=== PATIENT | male | born 1950 | race Caucasian/White ===

== ENCOUNTER 2016-12-17 20:28 | Inpatient (IN) | payer OTHER ==
[~2016-12-17] VITALS: Ht 170.2 cm; Wt 55.3 kg
[~2016-12-17 20:28] MED LIST: ADVIN50050 INH; ALBUAER9 INH; ASCOCRY2 PO; CHOL100010 PO; DUONEB INH; FEXO1TAB49 PO; LEVO150T9 PO; MEGE40TA13 PO; NXM/40 PO; OMEG10007 PO; OXGN; PARO1TAB29 PO; TADA10TA PO; TEST1SOL TOP; TIOTCAP INH; TRAM-10 PO; VYT1040 PO; [UNRECOGNIZED DRUG - REMARK]
[2016-12-17] MEDS ORDERED: SODIUM CHLORIDE 0.9% 1000ML 250 ML IV STA (21:11)
[2016-12-17] MEDS ORDERED: METHYLPREDNISOLONE 125 MG VIAL IV STA (21:11)
[2016-12-17] MEDS ORDERED: ALBUT/IPRATROP 3MG/0.5MG NEB 3 ML VIAL INH STA (21:11)
[2016-12-17] MEDS ORDERED: PIPERACILLIN/TAZOBACTAM 4.5 GM/100ML D5W IV STA (21:11)
[2016-12-17] MEDS ORDERED: SODIUM CHLORIDE 0.9% 1000ML 1,000 ML IV STA (21:11)
[2016-12-17] MEDS ORDERED: ONDANSETRON INJ 2 MG/ML 2 ML VIAL IV STA (21:11)
--- NOTE | 2016-12-17 21:36 | EMERGENCY ROOM VISIT NOTE ---
History Report prepared by Melo: Sangeetha Griggs Under the Supervision of: Dr. Bryn Cash M.D. First contact with patient: 21:02 Chief Complaint: RESPIRATORY PROBLEMS Stated Complaint: PNEUMONIA, NAUSEA History of Present Illness The patient is a 66 year old male who presents to the Emergency Room with complaints of persistent respiratory problems that started 10-11 days ago. He is on 2 L of nasal cannula oxygen at home. The patient has tried to relieve his symptoms with a nebulizer and exercise breather, but neither has offered him any relief. His most recent nebulizer treatment was this morning. The patient states that he was diagnosed with bronchitis by his PCP 10-11 days ago. He was started on 750 mg of Levaquin for one week along with a prednisone taper. He finished both of those medications last week and went back to his PCP 3 days ago for a one week follow-up. At the follow-up, the patient was experiencing chest pain especially with breathing, so she recommended that he go into the ED for further evaluation. He was evaluated at the [facility] 3 days ago and had an unremarkable EKG and a chest CT was negative for clots, but revealed bilateral pneumonias. The patient was given a dose of IV antibiotics and discharged home without any prescriptions. He states that he is still experiencing chest pain with breathing. He is also experiencing a slight fever around 100 F, a productive cough with pale green sputum, nausea, and vomiting. He states that the vomiting started earlier today and most of the time he is dry heaving. The patient has a history of COPD. The patient adds that he has a Dilaudid pump in place for chronic back pain and when they refilled it 2 weeks ago they added Clonidine to help with the burning that he was experiencing in his legs. However, he states that the Clonidine hasn't been working. Source of History: patient Onset: 10-11 days ago Position: chest Quality: other (respiratory problems) Timing: other (persistent) Associated Symptoms: + chest pain (with breathing), + cough (productive with pale green sputum), + fevers, + nausea, + vomiting Review of Systems See HPI for pertinent positives & negatives. A total of 10 systems reviewed and were otherwise negative. Past Medical & Surgical Medical Problems: (1) Hyperlipidemia (2) Hypertension (3) Respiratory failure, [id number] Family History Heart disease Social History Smoking Status: Former Smoker Marital Status: Housing Status: lives with family Current/Historical Medications Scheduled Ascorbic Acid (Ascorbic Acid), 1,000 MG PO DAILY Cholecalciferol (Vitamin D 1000 Unit), 1,000 INTER.UNIT PO DAILY Difluprednate (Durezol), 1 DROP OPL BID Esomeprazole Magnesium (Nexium), 40 MG PO BID Ezetimibe/Simvastatin (Vytorin 10-40 mg), 1 TAB PO HS Fish Oil ([place]-3), 1 CAP PO DAILY Fluticasone Prop/Salmeterol (Advair Diskus 500-50 Mcg/Dose), 2 PUFFS INH BID Levothyroxine Sodium (Levothyroxine Sodium), 150 MCG PO DAILY Oxygen (Oxygen), 2 LITERS NA CONTINOUS Paroxetine (Paxil), 140 MG PO DAILY Sennosides-Docusate Sodium (Stool Softener), 50 MG PO BID Tadalafil (Cialis), 2.5 MG PO UD Testosterone (Axiron), 1 APPLN TOP HS Tiotropium [place] (Spiriva Handihaler), 1 CAP INH QAM Scheduled PRN Albuterol Sulf (Albuterol Sulfate), 3 ML NEB QID PRN for SOB/Wheezing Fexofenadine Hcl (Shanique Allergy), 180 MG PO DAILY PRN for Allergy Symptoms Hydroxyzine Pamoate (Vistaril), 25 MG PO BID PRN for Itching Promethazine Hcl (Phenergan), 25 MG PO Q6H PRN for Nausea Tramadol (Ultram), 50 MG PO Q6H PRN for Pain Allergies Coded Allergies: Carbamazepine (Unverified Allergy, Severe, GI SYMPTOMS, 12/17/16) Chemically induce hepatitis Ibuprofen (Unverified Allergy, Severe, ANAPHYLAXIS, 12/17/16) Gabapentin (Unverified Adverse Reaction, Intermediate, GI SYMPTOMS, ) diarrhea NSAIDs (Unverified Adverse Reaction, Intermediate, GI SYMPTOMS, 12/17/16) RIP UP STOMACH Physical Exam Vital Signs Date Time Temp Pulse Resp B/P Pulse Ox O2 Delivery O2 Flow Rate FiO2 12/17/16 22:46 98 22 91/61 98 Nasal Cannula 2.0 12/17/16 21:53 94 Nasal Cannula 2.0 12/17/16 21:29 Nasal Cannula 2.0 12/17/16 21:04 96 Nasal Cannula 2.0 12/17/16 20:58 83 12/17/16 20:40 36.9 105 18 86/60 92 Nasal Cannula 2.0 Physical Exam GENERAL: Patient is in no acute distress. HEENT: No acute trauma, normocephalic atraumatic, mucous membranes moist, no nasal congestion, no scleral icterus. NECK: No stridor, no adenopathy, no meningismus, trachea is midline. LUNGS: Equal breath sounds but markedly diminished, no wheezing or rhonchi. CHEST: Tender across lower anterior chest wall. HEART: Without murmurs gallops or rubs, regular rate and rhythm. ABDOMEN: Soft, nontender, bowel sounds positive, no hernias, no peritonitis. EXTREMITIES: No cyanosis or edema, full range of motion of all the joints without pain or difficulty, no signs for acute trauma. NEUROLOGIC: Oriented x 3, no acute motor or sensory deficits, no focal weakness. SKIN: No rash, no jaundice, no diaphoresis. Medical Decision & Procedures ER Provider Diagnostic Interpretation: X-ray results as stated below per interpretation by me and the radiologist: CHEST ONE VIEW PORTABLE FINDINGS: Baseline emphysematous changes noted. Increased pulmonary vasculature as well as interstitial Bruna B line are noted in the lung bases. A component of cardiac decompensation may be present. Postoperative changes to the cervical thoracic and lumbar spine are noted. There are chronic fibrotic changes over the right pulmonary apex. Superimposed parenchymal infiltrate may be present. IMPRESSION: Emphysematous change with developing components of congestive failure versus right apical infiltrative change. Electronically signed by: Parker Zamarripa M.D. 12/17/2016 9:37 PM Dictated Date/Time: 12/17/2016 9:35 PM Laboratory Results 12/17/16 21:30 Red Blood Count 4.47, Mean Corpuscular Volume 87.2, Mean Corpuscular Hemoglobin 28.6, Mean Corpuscular Hemoglobin Concent 32.8, Mean Platelet Volume 8.9, Neutrophils (%) (Auto) 80.9, Lymphocytes (%) (Auto) 7.7, Monocytes (%) (Auto) 10.7, Eosinophils (%) (Auto) 0.4, Basophils (%) (Auto) 0.1, Neutrophils # (Auto ) 6.76, Lymphocytes # (Auto) 0.64, Monocytes # (Auto) 0.89, Eosinophils # (Auto ) 0.03, Basophils # (Auto) 0.01 12/17/16 21:30 Test 12/17/16 21:30 12/17/16 23:12 White Blood Count 8.35 K/uL (4.8-10.8) Red Blood Count 4.47 M/uL (4.7-6.1) Hemoglobin 12.8 g/dL (14.0-18.0) Hematocrit 39.0 % (42-52) Mean Corpuscular Volume 87.2 fL (80-100) Mean Corpuscular Hemoglobin 28.6 pg (25-34) Mean Corpuscular Hemoglobin Concent 32.8 g/dl (32-36) Platelet Count 258 K/uL (130-400) Mean Platelet Volume 8.9 fL (7.4-10.4) Neutrophils (%) (Auto) 80.9 % Lymphocytes (%) (Auto) 7.7 % Monocytes (%) (Auto) 10.7 % Eosinophils (%) (Auto) 0.4 % Basophils (%) (Auto) 0.1 % Neutrophils # (Auto) 6.76 K/uL (1.4-6.5) Lymphocytes # (Auto) 0.64 K/uL (1.2-3.4) Monocytes # (Auto) 0.89 K/uL (0.11-0.59) Eosinophils # (Auto) 0.03 K/uL (0-0.5) Basophils # (Auto) 0.01 K/uL (0-0.2) RDW Standard Deviation 43.2 fL (36.4-46.3) RDW Coefficient of Variation 13.5 % (11.5-14.5) Immature Granulocyte % (Auto) 0.2 % Immature Granulocyte # (Auto) 0.02 K/uL (0.00-0.02) Prothrombin Time 10.3 SECONDS (9.0-12.0) Prothromb Time International Ratio 1.0 (0.9-1.1) Activated Partial Thromboplast Time 32.7 SECONDS (21.0-31.0) Partial Thromboplastin Ratio 1.3 Anion Gap 5.0 mmol/L (3-11) Est Creatinine Clear Calc Drug Dose 55.1 ml/min Estimated GFR () 90.3 Estimated GFR (Non- 77.9 BUN/Creatinine Ratio 11.8 (10-20) Calcium Level 8.8 mg/dl (8.5-10.1) Magnesium Level 2.0 mg/dl (1.8-2.4) Total Bilirubin 0.6 mg/dl (0.2-1) Aspartate Amino Transf (AST/SGOT) 13 U/L (15-37) Alanine Aminotransferase (ALT/SGPT) 17 U/L (12-78) Alkaline Phosphatase 81 U/L (45-117) Troponin I < 0.015 ng/ml (0-0.045) Pro-B-Type Natriuretic Peptide 168 pg/ml (0-900) Total Protein 7.3 gm/dl (6.4-8.2) Albumin 2.6 gm/dl (3.4-5.0) Globulin 4.7 gm/dl (2.5-4.0) Albumin/Globulin Ratio 0.6 (0.9-2) Thyroid Stimulating Hormone (TSH) 0.072 uIu/ml (0.300-4.500) Laboratory results reviewed by me. Medications Administered Medications (Trade) Dose Ordered Sig/Jo Route Start Time Stop Time Status Last Admin Dose Admin Sodium Chloride (Nss 1000ml) 250 ml @ 999 mls/hr Q16M STAT IV 12/17/16 21:11 12/17/16 21:26 DC 12/17/16 21:11 999 MLS/HR Ondansetron HCl (Zofran Inj) 4 mg NOW STAT IV 12/17/16 21:11 12/17/16 21:14 DC 12/17/16 21:48 4 MG Methylprednisolone Sodium Succinate (Solu-Medrol IV) 125 mg NOW STAT IV 12/17/16 21:11 12/17/16 21:14 DC 12/17/16 21:48 125 MG Albuterol/ Ipratropium (Duoneb) 3 ml NOW STAT INH 12/17/16 21:11 12/17/16 21:14 DC 12/17/16 21:48 3 ML Piperacillin Sod/ Tazobactam Sod 4.5 gm 4.5 gm NOW STAT IV 12/17/16 21:11 12/17/16 21:14 DC 12/17/16 21:58 4.5 GM Sodium Chloride (Nss 1000ml) 1,000 ml @ 125 mls/hr Q8H STAT IV 12/17/16 21:11 12/18/16 05:10 12/17/16 22:13 125 MLS/HR ECG Indication: chest pain, SOB/dyspnea Rate (beats per minute): 81 Rhythm: normal sinus Findings: no acute ischemic change, no ectopy ED Course 2102: The patient was evaluated in room B2. A complete history and physical exam was performed. 2110: Ordered Sodium Chloride 1000 ml @ 125 mls/hr IV, Zosyn 4.5 gm IV, DuoNeb 3 ml INH, Solu-Medrol 125 mg IV, Zofran Inj 4 mg IV, Sodium Chloride 250 ml @ 999 mls/hr IV 2223: Discussed the patient's case with Dr. Travis Oates. The patient will be evaluated for further management. 2242: Upon reexamination the patient is resting comfortably. I discussed results and treatment plan with the patient. He verbalizes agreement and understanding. The patient will be evaluated for further management. Medical Decision Differential diagnoses considered include pneumonia or bronchitis, cardiac ischemia, exacerbation of COPD, viral illness, anemia, electrolyte imbalance, dehydration, failed outpatient treatment. There is no leukocytosis or concerning anemia. No significant electrolyte abnormality, kidney failure or hepatitis. Chest x-ray shows a right sided pneumonia, no pneumothorax. BNP is not elevated making heart failure less likely. EKG shows a normal sinus rhythm, no acute ischemic change. Cardiac enzyme testing 1 is not consistent with acute cardiac injury. Blood cultures are pending. There is no coagulopathy. The patient was given IV saline, IV Zofran, IV Zosyn. He received a DuoNeb and IV Solu-Medrol. The patient presents with pneumonia, he has an exacerbation of COPD. He has failed outpatient treatment. Admission/observation is warranted. I spoke to the patient and to case management. The on-call hospitalist was consulted. Of note, the patient's lower blood pressure may be from the addition of the clonidine to his intrathecal pump. Consults Time Called: 2217 Consulting Physician: Dr. Travis Oates Returned Call: [phone] Discussed the patient's case with Dr. Travis Oates. The patient will be evaluated for further management. Impression Primary Impression: Pneumonia Additional Impressions: Hypotension COPD exacerbation Failure of outpatient treatment Scribe Attestation The scribe's documentation has been prepared under my direction and personally reviewed by me in its entirety. I confirm that the note above accurately reflects all work, treatment, procedures, and medical decision making performed by me. Departure Information Dispostion Being Evaluated By Hospitalist Referrals No Doctor, Assigned (PCP) Patient Instructions My [facility] Problem Qualifiers Primary Impression: Pneumonia Pneumonia type: due to unspecified organism Additional Impressions: Hypotension Hypotension type: unspecified hypotension type Qualified Codes: I95.9 - Hypotension, unspecified
[2016-12-17 21:45] LABS: BASO % 0.1 %; BASO ABS # 0.01 K/uL (0-0.2); COMPLETE YES; EOS % 0.4 %; IG% 0.2 %; LYMPH % 7.7 %; LYMPH ABS # 0.64 K/uL (1.2-3.4); MEAN CELL VOLUME 87.2 fL (80-100); MEAN CORPUSCULAR HEMOGLOBIN 28.6 pg (25-34); MEAN CORPUSCULAR HGB CONC 32.8 g/dl (32-36); MEAN PLATELET VOLUME 8.9 fL (7.4-10.4); MONO % 10.7 %; NEUT % 80.9 %; PLATELET COUNT 258 K/uL (130-400); RED BLOOD COUNT 4.47 M/uL (4.7-6.1); WHITE BLOOD COUNT 8.35 K/uL (4.8-10.8)
[2016-12-17 21:56] LABS: PARTIAL THROMBOPLASTIN RATIO 1.3; PROTHROMBIN TIME (PATIENT) 10.3 SECONDS (9.0-12.0)
[2016-12-17 22:01] LABS: ALT/SGPT 17 U/L (12-78); BLOOD UREA NITROGEN 12 mg/dl (7-18); BUN/CREATININE RATIO 11.8 (10-20); CARBON DIOXIDE 33 mmol/L (21-32); CHLORIDE 100 mmol/L (98-107); CREATININE 0.99 mg/dl (0.60-1.40); GLUCOSE 123 mg/dl (70-99); SODIUM 138 mmol/L (136-145)
[2016-12-17 22:06] LABS: ALB/GLOB RATIO 0.6 (0.9-2); ALKALINE PHOSPHATASE 81 U/L (45-117); AST/SGOT 13 U/L (15-37)
[2016-12-17 22:13] LABS: CALCIUM 8.8 mg/dl (8.5-10.1)
[2016-12-17] MEDS ORDERED: DIFL0.0519 OPL (22:48)
[2016-12-17] MEDS ORDERED: SPRIN/30 INH (22:48)
[2016-12-17] MEDS ORDERED: ALBINS NEB (22:48)
[2016-12-17] MEDS ORDERED: HYDR1CAP85 PO (22:48)
[2016-12-17] MEDS ORDERED: TADA2.5T PO (22:48)
[2016-12-17] MEDS ORDERED: PROM25TA9 PO (22:48)
[2016-12-17] MEDS ORDERED: CHOL100027 PO (22:51)
[2016-12-17] MEDS ORDERED: SENNTAB23 PO (22:52)
[2016-12-17] MEDS ORDERED: ASCO100061 PO (22:53)
[2016-12-17 23:08] LABS: THYROID STIMULATING HORMONE 0.072 uIu/ml (0.300-4.500)
[2016-12-17] MEDS ORDERED: SODIUM CHLORIDE 0.9% 1000ML 1,000 ML IV SCH (23:24)
[2016-12-17] MEDS ORDERED: LEVALBUTEROL/IPRATROPIUM NEB INH PRN (23:30)
[2016-12-17] MEDS ORDERED: PROMETHAZINE HCL INJ 12.5 MG in SODIUM CHLORIDE 0.9% 50ML 50 ML IV PRN (23:30)
[2016-12-17] MEDS ORDERED: ONDANSETRON INJ 2 MG/ML 2 ML VIAL IV PRN (23:30)
[2016-12-17] MEDS ORDERED: FEXOFENADINE HCL 180 MG TAB PO PRN (23:30)
[2016-12-17] MEDS ORDERED: hydrOXYzine HCL 25 MG TAB PO PRN (23:30)
[2016-12-17] MEDS ORDERED: SODIUM CHLORIDE 0.9% 1000ML 1,000 ML IV ONE (23:45)
[2016-12-17 23:56] LABS: ALLEN TEST POS (POS); ARTERIAL BLD GAS O2 SATURATION 95.9 % (90-95); ARTERIAL BLOOD GAS BASE EXCESS 3.2 mEq/L (-9-1.8); ARTERIAL BLOOD GAS HCO3 27 mmol/L (19-24); ARTERIAL BLOOD GAS PO2 81 mm/Hg (80-95); ARTERIAL BLOOD GAS pH 7.48 (7.35-7.45); O2 ADMINISTRATION 2L
[2016-12-18] VITALS (14 sets, daily range): BP systolic 92–118; BP diastolic 54–65; PULSE 61–92; TEMP 36.4–36.8; O2SAT 93–98; Ht 170.2 cm; Wt 55.3 kg
[2016-12-18] MEDS ORDERED: LEVALBUTEROL 1.25MG/0.5ML NEB INH PRN (01:00)
[2016-12-18] MEDS ORDERED: IPRATROPIUM BROMIDE NEB SOLN 0.02% 2.5 ML VIAL INH PRN (01:00)
[2016-12-18] MEDS: IPRATROPIUM BROMIDE NEB SOLN 0.02% 2.5 ML VIAL INH SCH ×4 (01:45→18:48)
[2016-12-18] MEDS: LEVALBUTEROL 1.25MG/0.5ML NEB INH SCH ×4 (01:45→18:48)
[2016-12-18] MEDS ORDERED: LEVALBUTEROL/IPRATROPIUM NEB INH SCH (03:00)
[2016-12-18] MEDS: PIPERACILL/TAZOBAC IV 3.375 GM in DEXTROSE 5% 100ML IV SCH ×3 (03:28→20:17)
[2016-12-18] MEDS: LEVOTHYROXINE 125 MCG TAB PO SCH (06:13)
[2016-12-18] MEDS ORDERED: LEVOTHYROXINE 150 MCG TAB PO SCH ×2 (06:30)
--- NOTE | 2016-12-18 06:55 | HISTORY & PHYSICAL EXAMINATION ---
PRIMARY CARE DOCTOR: Dr. Ríos CHIEF COMPLAINT: Chest pain and shortness of breath. HISTORY OF PRESENT ILLNESS: Hx obtained from px and records. Medical history is significant for chronic respiratory failure secondary to COPD on home O2, past tobacco abuse, chronic back pain sp surgery sp intrathecal pump, chronic anemia (baseline hemoglobin of 12), mood disorder, Barretts esophagus/ GERD sp surgery, colonic polyps. About two weeks ago, the patient noted cough symptoms productive of yellow sputum. Denies juancarlos aspiration although he feels would get food stuck in his throat from time to time. Outpatient EGD scheduled for next month. He was seen at PCP's office. Prescribed Levaquin and prednisone for COPD exacerbation. Initial improvement of symptoms. About three days ago, the patient had pleuritic chest pain, sob sx and recurrent cough symptoms productive of green sputum. He was seen at [facility] in [place], [place]. As per patient, CT of the chest showed pneumonia, no pulmonary embolism. Patient was given IV antibiotics and sent home. Worsening symptoms at home. Stools are a little loose. At the Emergency Room the patient received Solu-Medrol, breathing treatments and Zosyn for COPD exacerbation/pneumonia. MEDICAL HISTORY: As above. Patient's administrative technician is Dr. Willis from [facility]. Patient goes to [facility] Pain Management. Addition of clonidine to intrathecal Dilaudid pump during last visit this month. SURGERIES: He has had back surgery, pain pump placement, Edwin fundoplication, cataract surgery. 2D echo from July 2015 showed EF of 72%, mildly abnormal LV diastolic dysfunction. HOME MEDICATIONS: Include; Proventil, vitamin B, DuoNeb, Nexium, [place]ique, [place]-3, Advair Diskus, Megace, oxygen, Paxil, testosterone, Cialis, Spiriva, Ultram, dilaudid/clonidine in pain pump ALLERGIES: TO CARBAMAZEPINE, IBUPROFEN AND GABAPENTIN. FAMILY HISTORY: Hypertension. PERSONAL AND SOCIAL HISTORY: Past tobacco. No chronic intake of alcoholic beverages. Retired from the . REVIEW OF SYSTEMS: As per HPI. All other ROS negative. PHYSICAL EXAMINATION: VITAL SIGNS: Blood pressure was noted to be 86/60, pulse rate 105 later 90, RR 22, T 37 O2 sats 92 on two liters. GENERAL: Noted to be chronically ill, hyposthenic, minimal respiratory distress. SKIN: Pallor. HEENT: Pale palpebral conjunctivae. Dry mucosa. NECK: No JVD. Supple. CHEST: Expiratory wheezes. HEART: Regular rate and rhythm. ABDOMEN: No distention, nontender. EXTREMITIES: No edema. no tenderness NEUROLOGIC: No gross focality. LABORATORIES: Hemoglobin was noted to be 12.8, white cell count 8.3 and platelets 268. Sodium was noted to be 138, potassium 3.8 chloride 100, CO2 30, BUN 20, creatinine 0.9 and glucose 123. TSH was 0.07, FT4 3.12 BNP was normal. ABG pH 7.48, pCO2 37, pO2 81, 95% on two liters. Chest x-ray showed emphysema, infiltrate on the right upper lobe. EKG as per my interpretation; rate 80, NSR, left axis deviation, LAFB, negative ischemia. ASSESSMENT: 1. Acute on chronic respiratory failure secondary to chronic obstructive pulmonary disease exacerbation secondary to pneumonia, possible aspiration recent emesis episode possible esophageal dysfunction. Recent bronchitis status post Levaquin/prednisone course Patient is not septic. past tobacco abuse. 2. pleuritic cp from pneumonia no PE from recent ER visit ([facility]) chronic pain on intrathecal pain pump. 3. hypotension, possibly from intrathecal clonidine 4. Hypothyroidism, abnormal thyroid function tests. 5. Chronic anemia, hemoglobin at baseline. 6. GERD sp Edwin fundoplication. 7. Malnutrition (low BMI) 8. loose stools ro cdif PLAN: PCU supplemental O2 Zosyn, nebs RTC, prn; prednisone Pulmonary consult. COPD exacerbation (Patient known to Dr. Willis.) Swallow evaluation. Aspiration precautions for now. TTE RE cp Retrieve CT chest results from [facility] Pain management consult. RE Follow up evaluation of intrathecal pain pump ( ?intrathecal clonidine causing hypotension) adjust home levothyroxine dose, recheck TSH outpx next month stool cdif Nutrition consult. RE low BMI DVT prophylaxis, Lovenox subQ. Full code. MTDD
[2016-12-18] MEDS: CHOLECALCIFEROL 1000 INTER.UNIT TAB PO SCH (07:43)
[2016-12-18] MEDS: PANTOprazole SOD 40 MG TAB PO SCH ×2 (07:43→20:30)
[2016-12-18] MEDS: ENOXAPARIN 30 MG/0.3 ML SYR SC SCH (07:44)
[2016-12-18 07:45] LABS: COMPLETE YES; HEMATOCRIT 37.1 % (42-52); IG% 0.6 %; LYMPH % 14.7 %; LYMPH ABS # 0.53 K/uL (1.2-3.4); MEAN CELL VOLUME 87.9 fL (80-100); MEAN CORPUSCULAR HEMOGLOBIN 27.7 pg (25-34); MEAN CORPUSCULAR HGB CONC 31.5 g/dl (32-36); MEAN PLATELET VOLUME 8.6 fL (7.4-10.4); MONO % 0.8 %; NEUT % 83.9 %; PLATELET COUNT 230 K/uL (130-400); RED BLOOD COUNT 4.22 M/uL (4.7-6.1)
--- NOTE | 2016-12-18 08:54 | Pain Management Consultation ---
Pain Management Consultation Date of Consultation December 18, 2016. Reason for Consultation intrathecal pump mgt History Mr. Uriostegui is a 66-year-old white male who is known to the pain service with a history of chronic intractable low back and lower extremity radicular pain secondary to lumbar post-laminectomy syndrome. The patient also has chronic complaints of peripheral neuropathic pain, described as burning with paresthetica and dysesthetic pain in the feet bilaterally in nondermatomal patterns. The patient indicates that his pain is currently a 3/ 10 ranging between a 2-6/10. He recently had an addition of clonidine at 13 g per day added to his intrathecal pump medications and attempt to improve his peripheral neuropathic pain complaints. He presented to the [facility] emergency room with 3 weeks of shortness of breath and productive cough and mucous and recent pneumonia status post outpatient treatment. He also presented with decreased oxygen saturation and mild hypotension. The patient reports that the addition of clonidine at 13 g per day in his pump was moderately efficacious and diminishing his peripheral neuropathic pain however given his current low-grade hypotension requests removal of clonidine from his pump at this time. He denies any other complaints associated with his intrathecal pump at this time. Past Medical/Surgical History (1) Respiratory failure, [id number] (2) Hypotension (3) Pneumonia (4) COPD exacerbation (5) Failure of outpatient treatment (6) Hypertension (7) Hyperlipidemia Family History Heart disease Family Hx Review: history personally reviewed by me Social / Work History Smokeless Tobacco Use: No Drug Use: none Marital Status: Housing Status: lives with family Allergies Coded Allergies: Carbamazepine (Unverified Allergy, Severe, GI SYMPTOMS, 12/17/16) Chemically induce hepatitis Ibuprofen (Unverified Allergy, Severe, ANAPHYLAXIS, 12/17/16) Gabapentin (Unverified Adverse Reaction, Intermediate, GI SYMPTOMS, ) diarrhea NSAIDs (Unverified Adverse Reaction, Intermediate, GI SYMPTOMS, 12/17/16) RIP UP STOMACH Medications Current Inpatient Medications Medications (Trade) Dose Ordered Sig/Jo Route Start Time Stop Time Status Last Admin Dose Admin Enoxaparin Sodium (Lovenox Inj) 30 mg Q24H SC 12/18/16 09:00 01/17/17 08:59 12/18/16 07:44 30 MG Ondansetron HCl 4 mg 4 mg Q6H PRN IV 12/17/16 23:30 01/16/17 23:29 Promethazine HCl/ Sodium Chloride (Phenergan Inj/ Nss 50ml) 50.5 ml @ 204 mls/hr Q6H PRN IV 12/17/16 23:30 01/16/17 23:29 Piperacillin Sod/ Tazobactam Sod (Consult) 1 ea UD PRN N/A 12/18/16 09:00 01/17/17 08:59 Prednisone (PredniSONE TAB) 40 mg DAILY PO 12/18/16 09:00 12/23/16 08:59 12/18/16 07:43 40 MG Cholecalciferol (Vitamin D Tab) 1,000 inter.unit DAILY PO 12/18/16 09:00 01/17/17 08:59 12/18/16 07:43 1,000 INTER.UNIT Ezetimibe/ Simvastatin (Vytorin 10/40 Tab) 1 tab HS PO 12/18/16 21:00 01/17/17 20:59 Fexofenadine HCl (Shanique Tab) 180 mg DAILY PRN PO 12/17/16 23:30 01/16/17 23:29 Paroxetine HCl (pAXil TAB) 140 mg DAILY PO 12/18/16 09:00 01/17/17 08:59 UNV Tramadol HCl (Ultram Tab) 50 mg Q6H PRN PO 12/17/16 23:30 01/16/17 23:29 Miscellaneous Information (Order Awaiting Action) 1 ea QS N/A 12/18/16 08:00 01/17/17 07:59 Pantoprazole Sodium (Protonix Tab) 40 mg BID PO 12/18/16 09:00 01/17/17 08:59 12/18/16 07:43 40 MG Hydroxyzine HCl 25 mg 25 mg BID PRN PO 12/17/16 23:30 01/16/17 23:29 Sodium Chloride (Nss 1000ml) 1,000 ml @ 80 mls/hr [id number] ONCE IV 12/17/16 23:45 12/18/16 12:14 12/18/16 00:09 80 MLS/HR Ipratropium [place] (Atrovent 0.02% 0.5MG/2.5ML Neb) 0.5 mg Q6R INH 12/18/16 03:00 01/17/17 02:59 12/18/16 07:12 0.5 MG Levalbuterol (Xopenex 1.25MG/ 0.5ML Neb) 1.25 mg Q6R INH 12/18/16 03:00 01/17/17 02:59 12/18/16 07:12 1.25 MG Ipratropium [place] (Atrovent 0.02% 0.5MG/2.5ML Neb) 0.5 mg Q4H PRN INH 12/18/16 01:00 01/17/17 00:59 Levalbuterol (Xopenex 1.25MG/ 0.5ML Neb) 1.25 mg Q4H PRN INH 12/18/16 01:00 01/17/17 00:59 Levothyroxine Sodium 125 mcg 125 mcg DAILYBB PO 12/18/16 06:30 01/17/17 06:29 12/18/16 06:13 125 MCG Piperacillin Sod/ Tazobactam Sod/ Dextrose (Zosyn Iv/D5 100ml) 115 ml @ 28.75 mls/ hr Q8H IV 12/18/16 04:00 12/25/16 03:59 12/18/16 03:28 28.75 MLS/HR Review of Systems +cough/productive mucus/SOB +neuropathy over BL LE No CP/N/V/D/C no WHITE Physical Exam Height & Weight: Height 5 feet, 7.00 inches. Weight 54.500 (Kilograms) 120 (Pounds) Last Vital Signs Documentation Date Time Temp Pulse Resp B/P Pulse Ox O2 Delivery O2 Flow Rate FiO2 12/18/16 07:22 36.4 62 18 101/63 95 Room Air 2.0 Exam: AAOx3 in NAD sitting in bed ACOSTA equally throughout gait not observed tender over BL feet to ankles pump and catheter sites unremarkable CN grossly intact Laboratory Laboratory Results (Last CBC): 12/18/16 07:25 Red Blood Count 4.22 L, Mean Corpuscular Volume 87.9, Mean Corpuscular Hemoglobin 27.7, Mean Corpuscular Hemoglobin Concent 31.5 L, Mean Platelet Volume 8.6, Neutrophils (%) (Auto) 83.9, Lymphocytes (%) (Auto) 14.7, Monocytes (%) (Auto) 0.8, Eosinophils (%) (Auto) 0.0, Basophils (%) (Auto) 0.0, Neutrophils # (Auto) 3.02, Lymphocytes # (Auto) 0.53 L, Monocytes # (Auto) 0.03 L, Eosinophils # (Auto) 0.00, Basophils # (Auto) 0.00 Opioid Risk Assessment Risk assessment performed, no issues identified Assessment 1. Chronic intractable low back pain secondary to lumbar post-laminectomy syndrome requiring implantation of intrathecal pump and catheter delivery system. 2. Peripheral neuropathic pain in bilateral feet. 3. Depressive disorder. 4. Pneumonia on on IV antibiotics. 5. Low-grade hypotension. Recommendations 1. Even though the patient had moderate efficacy from the additional of intrathecal clonidine to his intrathecal pump, we'll plan for removal at this time. Medications will be ordered today with arrival within the next day or two. 2. No other changes to his pain medications will be made at this time. 3. A report of his intrathecal pump was placed on the chart. 4. We'll plan for a refill of his intrathecal pump once medications are made available. 5. Please call with any questions we'll stop back to change his intrathecal pump once medications are available thank you. Punctil Voice Recognition This chart was completed in part utilizing [employer] Voice Recognition Software. Random word insertions, pronoun errors, and incomplete sentences are an occasional consequence of this system due to software limitations and ambient noise. Any questions or concerns about the content, text or information contained within the body of this dictation should be directly addressed to the provider for clarification.
[2016-12-18] MEDS ORDERED: PIPERACILL/TAZOBAC CONSULT ACTIVE PRN (09:00)
[2016-12-18] MEDS: PAROXETINE 20 MG TAB PO SCH (09:10)
[2016-12-18] MEDS ORDERED: DOCUSATE SODIUM/SENNA 50/8.6MG TAB PO PRN (10:00)
--- NOTE | 2016-12-18 14:45 | ECHOCARDIOGRAM REPORT ---
*NOTICE TO RECEIVING LIBERTARIAN AGENCY This information is strictly Confidential and protected under [place] law. [place] law prohibits you from making any further disclosure of this information unless further disclosure is expressly permitted by the written consent of the person to whom it pertains or is authorized by law. A general authorization for the release of medical or other information is not sufficient for this purpose. Hospital accepts no responsibility if the information is made available to any other person, INCLUDING THE PATIENT. Interpretation Summary * Name: DARRELL RASHEED Study Date: 12/18/2016 01:47 PM BP: 98/60 mmHg * Patient Location: [facility] HR: 74 * : 1950 (M/d/yyyy) Gender: Male Height: 67 in * Age: 66 yrs Ethnicity: CA Weight: 120 lb * Ordering Physician: Gavino Robles * Performed By: Sylvia Gonzalez * * Reason For Study: CHEST PAIN * BSA: 1.6 m2 * -- Conclusions -- * Normal LV chamber size and wall thickness. * Hyperdynamic LV systolic function, EF >70%. * No segmental left ventricular wall motion abnormalities are noted. * Grade II diastolic dysfunction. * No significant valvular pathology. Procedure Details * A complete two-dimensional transthoracic echocardiogram was performed (2D, M-mode, Doppler and color flow Doppler). Left Ventricle * The left ventricle is normal in size. * There is normal left ventricular wall thickness. * Ejection Fraction = >70 %. * The left ventricle is hyperdynamic. * No segmental left ventricular wall motion abnormalities are noted. * The left ventricular wall motion is normal. Right Ventricle * The right ventricular cavity size is normal (basal dimension <4.2 cm in right ventricular apical 4-chamber view). * The right ventricular systolic function is normal as assessed by tricuspid annular plane systolic excursion (TAPSE) (normal >1.5 cm). Atria * The left atrial size is normal. * Right atrial size is normal. * No ASD detected; PFO is not assessed. Mitral Valve * The mitral valve is normal in structure and function. Tricuspid Valve * The tricuspid valve is normal in structure and function. Aortic Valve * The aortic valve is normal in structure and function. Pulmonic Valve * The pulmonary valve is not well seen, but the Doppler examination is normal without significant regurgitation or stenosis. Great Vessels * The aortic root is normal size. Pericardium/Pleural * There is no pericardial effusion. Left Ventricular Diastolic Function * Diastolic dysfunction, Grade II (pseudonormalization pattern). MMode 2D Measurements and Calculations IVSd 0.99 cm IVSs 1.5 cm LVIDd 4.1 cm LVIDs 2.5 cm LVPWd 0.70 cm LVPWs 1.5 cm IVS/LVPW 1.4 FS 39.4 % EDV(Teich) 73.9 ml ESV(Teich) 21.9 ml EF(Teich) 70.4 % EDV(cubed) 68.6 ml ESV(cubed) 15.2 ml EF(cubed) 77.8 % % IVS thick 50.2 % % LVPW thick 116.5 % LV mass(C)d 104.4 grams LV mass(C)dI 64.2 grams/m\S\2 LV mass(C)s 125.0 grams LV mass(C)sI 76.8 grams/m\S\2 CO(Teich) 3.3 l/min CI(Teich) 2.0 l/min/m\S\2 SV(Teich) 52.1 ml SI(Teich) 32.0 ml/m\S\2 CO(cubed) 3.4 l/min CI(cubed) 2.1 l/min/m\S\2 SV(cubed) 53.3 ml SI(cubed) 32.8 ml/m\S\2 ACS 1.8 cm LA dimension 3.6 cm asc Aorta Diam 3.3 cm LVOT diam 2.1 cm LVOT area 3.3 cm\S\2 LVAd ap4 24.9 cm\S\2 LVLd ap4 7.6 cm EDV(MOD-sp4) 67.0 ml LVAs ap4 11.7 cm\S\2 LVLs ap4 6.3 cm ESV(MOD-sp4) 18.0 ml EF(MOD-sp4) 73.1 % LVAd ap2 24.2 cm\S\2 LVLd ap2 7.5 cm EDV(MOD-sp2) 66.0 ml LVAs ap2 11.4 cm\S\2 LVLs ap2 6.0 cm ESV(MOD-sp2) 19.0 ml EF(MOD-sp2) 71.2 % CO(MOD-sp4) 3.1 l/min CI(MOD-sp4) 1.9 l/min/m\S\2 SV(MOD-sp4) 49.0 ml SI(MOD-sp4) 30.1 ml/m\S\2 CO(MOD-sp2) 3.0 l/min CI(MOD-sp2) 1.8 l/min/m\S\2 SV(MOD-sp2) 47.0 ml SI(MOD-sp2) 28.9 ml/m\S\2 Doppler Measurements and Calculations MV E max valerie 111.1 cm/sec MV A max valerie 72.9 cm/sec MV E/A 1.5 MV dec time 0.18 sec Ao V2 max 109.5 cm/sec Ao max PG 4.8 mmHg Ao max PG (full) 1.9 mmHg PATT(V,A) 2.6 cm\S\2 PATT(V,D) 2.6 cm\S\2 LV V1 max PG 2.9 mmHg LV V1 max 85.6 cm/sec PA V2 max 60.7 cm/sec PA max PG 1.5 mmHg PI end-d valerie 116.7 cm/sec
--- NOTE | 2016-12-18 15:15 | Progress Note ---
Medicine Progress Note Date & Time of Visit: December 18, 2016 at 14:48. Subjective Pt was seen and examined Lying in bed with no distress Pt said that he feels a little better compared to yesterday he said that his cough and his breathing slightly improved Chest tenderness with deep breathing and coughing Denies any palpitation, fever and dizziness Objective Last 8 Hrs Date Time Temp Pulse Resp B/P Pulse Ox O2 Delivery O2 Flow Rate FiO2 12/18/16 13:00 93 12/18/16 12:00 Nasal Cannula 2.0 12/18/16 11:32 36.6 74 18 98/60 93 Nasal Cannula 2.0 12/18/16 08:00 Nasal Cannula 2.0 12/18/16 07:22 36.4 62 18 101/63 95 Room Air 2.0 12/18/16 07:12 61 16 97 Nasal Cannula 2.0 Physical Exam: General- No acute distress Head- atraumatic Eyes- PERRL, EOMI ENT- oropharynx clear Neck- supple, no JVD Lungs- Coarse breath sound Heart- regular rhythm Abdomen- normal bowel sounds, soft, nontender, Pump located in LLQ Extremities-no calf tenderness Neuro- alert, oriented x 3; PERRL, EOMI Skin- warm & dry Laboratory Results: Last 24 Hours Test 12/17/16 21:30 12/17/16 23:12 12/17/16 23:45 12/18/16 07:25 White Blood Count 8.35 K/uL 3.60 K/uL Red Blood Count 4.47 M/uL 4.22 M/uL Hemoglobin 12.8 g/dL 11.7 g/dL Hematocrit 39.0 % 37.1 % Mean Corpuscular Volume 87.2 fL 87.9 fL Mean Corpuscular Hemoglobin 28.6 pg 27.7 pg Mean Corpuscular Hemoglobin Concent 32.8 g/dl 31.5 g/dl Platelet Count 258 K/uL 230 K/uL Mean Platelet Volume 8.9 fL 8.6 fL Neutrophils (%) (Auto) 80.9 % 83.9 % Lymphocytes (%) (Auto) 7.7 % 14.7 % Monocytes (%) (Auto) 10.7 % 0.8 % Eosinophils (%) (Auto) 0.4 % 0.0 % Basophils (%) (Auto) 0.1 % 0.0 % Neutrophils # (Auto) 6.76 K/uL 3.02 K/uL Lymphocytes # (Auto) 0.64 K/uL 0.53 K/uL Monocytes # (Auto) 0.89 K/uL 0.03 K/uL Eosinophils # (Auto) 0.03 K/uL 0.00 K/uL Basophils # (Auto) 0.01 K/uL 0.00 K/uL RDW Standard Deviation 43.2 fL 43.5 fL RDW Coefficient of Variation 13.5 % 13.5 % Immature Granulocyte % (Auto) 0.2 % 0.6 % Immature Granulocyte # (Auto) 0.02 K/uL 0.02 K/uL Prothrombin Time 10.3 SECONDS Prothromb Time International Ratio 1.0 Activated Partial Thromboplast Time 32.7 SECONDS Partial Thromboplastin Ratio 1.3 Sodium Level 138 mmol/L Potassium Level 4.0 mmol/L Chloride Level 100 mmol/L Carbon Dioxide Level 33 mmol/L Anion Gap 5.0 mmol/L Blood Urea Nitrogen 12 mg/dl Creatinine 0.99 mg/dl Est Creatinine Clear Calc Drug Dose 55.1 ml/min Estimated GFR () 90.3 Estimated GFR (Non- 77.9 BUN/Creatinine Ratio 11.8 Random Glucose 123 mg/dl Calcium Level 8.8 mg/dl Magnesium Level 2.0 mg/dl Total Bilirubin 0.6 mg/dl Aspartate Amino Transf (AST/SGOT) 13 U/L Alanine Aminotransferase (ALT/SGPT) 17 U/L Alkaline Phosphatase 81 U/L Troponin I < 0.015 ng/ml < 0.015 ng/ml Pro-B-Type Natriuretic Peptide 168 pg/ml Total Protein 7.3 gm/dl Albumin 2.6 gm/dl Globulin 4.7 gm/dl Albumin/Globulin Ratio 0.6 Thyroid Stimulating Hormone (TSH) 0.072 uIu/ml Free Thyroxine 3.12 ng/dl Total Triiodothyronine 0.83 ng/ml Lactic Acid Level 1.2 mmol/L Arterial Blood pH 7.48 Arterial Blood Partial Pressure CO2 37 mmHg Arterial Blood Partial Pressure O2 81 mm/Hg Arterial Blood HCO3 27 mmol/L Arterial Blood Oxygen Saturation 95.9 % Arterial Blood Base Excess 3.2 mEq/L Arterial Blood Gas Delivery 2L [place] Test POS Hepatitis C Antibody Screen NEG Date/Time Source Procedure Growth Status 12/17/16 21:46 Blood Blood Culture Pending Received 12/17/16 21:30 Blood Blood Culture Pending Received 12/18/16 00:15 Nasal MRSA DNA Surveillance Screen - Final Specimen Negative for MRSA by DNA Probe Complete 12/18/16 08:35 Stool C.difficile Toxin B Gene (PCR) - Final No C. difficile toxin B gene detected Complete 12/18/16 00:45 Sputum Expectorated Sputum Gram Stain - Final Resulted 12/18/16 00:45 Sputum Expectorated Sputum Sputum Culture Pending Resulted Assessment & Plan Acute on chronic respiratory failure Due COPD exacerbation secondary to pneumonia Emphysematous change with developing components of congestive failure versus right apical infiltrative change. On IV zosyn On Duoneb Pulmonary consulted- Pending. Chest Pain Atypical, mostly due to pleuritic chest pain CM are negative EKG did not showed any ST changes Echo * The left ventricle is normal in size. * There is normal left ventricular wall thickness. * Ejection Fraction = >70 %. * The left ventricle is hyperdynamic. * No segmental left ventricular wall motion abnormalities are noted. * The left ventricular wall motion is normal. Hypotension possibly from intrathecal clonidine Case discussed with Dr. Bell, clonidine will remove from the pump Continue IVF Intractable back pain Continue pain pump as per pain management Hypothyroidism. TSH is low decreased levothyroxine to 125 mcg Repeat TSH in 6 week Chronic anemia Stable GERD sp Edwin fundoplication. DVT px On Lovenox CODE STATUS FULL CODE Consultants: Pain management Pulmonary Current Inpatient Medications: Current Inpatient Medications Medications (Trade) Dose Ordered Sig/Jo Route Start Time Stop Time Status Last Admin Dose Admin Enoxaparin Sodium (Lovenox Inj) 30 mg Q24H SC 12/18/16 09:00 01/17/17 08:59 12/18/16 07:44 30 MG Ondansetron HCl 4 mg 4 mg Q6H PRN IV 12/17/16 23:30 01/16/17 23:29 Promethazine HCl/ Sodium Chloride (Phenergan Inj/ Nss 50ml) 50.5 ml @ 204 mls/hr Q6H PRN IV 12/17/16 23:30 01/16/17 23:29 Piperacillin Sod/ Tazobactam Sod (Consult) 1 ea UD PRN N/A 12/18/16 09:00 01/17/17 08:59 Prednisone (PredniSONE TAB) 40 mg DAILY PO 12/18/16 09:00 12/23/16 08:59 12/18/16 07:43 40 MG Cholecalciferol (Vitamin D Tab) 1,000 inter.unit DAILY PO 12/18/16 09:00 01/17/17 08:59 12/18/16 07:43 1,000 INTER.UNIT Ezetimibe/ Simvastatin (Vytorin 10/40 Tab) 1 tab HS PO 12/18/16 21:00 01/17/17 20:59 Fexofenadine HCl (Shanique Tab) 180 mg DAILY PRN PO 12/17/16 23:30 01/16/17 23:29 Paroxetine HCl (pAXil TAB) 40 mg DAILY PO 12/18/16 09:00 01/17/17 08:59 12/18/16 09:10 40 MG Tramadol HCl (Ultram Tab) 50 mg Q6H PRN PO 12/17/16 23:30 01/16/17 23:29 Miscellaneous Information (Order Awaiting Action) 1 ea QS N/A 12/18/16 08:00 01/17/17 07:59 Pantoprazole Sodium (Protonix Tab) 40 mg BID PO 12/18/16 09:00 01/17/17 08:59 12/18/16 07:43 40 MG Hydroxyzine HCl (Vistaril Tab) 25 mg BID PRN PO 12/17/16 23:30 01/16/17 23:29 Ipratropium [place] (Atrovent 0.02% 0.5MG/2.5ML Neb) 0.5 mg Q6R INH 12/18/16 03:00 01/17/17 02:59 12/18/16 07:12 0.5 MG Levalbuterol (Xopenex 1.25MG/ 0.5ML Neb) 1.25 mg Q6R INH 12/18/16 03:00 01/17/17 02:59 12/18/16 07:12 1.25 MG Ipratropium [place] (Atrovent 0.02% 0.5MG/2.5ML Neb) 0.5 mg Q4H PRN INH 12/18/16 01:00 01/17/17 00:59 Levalbuterol (Xopenex 1.25MG/ 0.5ML Neb) 1.25 mg Q4H PRN INH 12/18/16 01:00 01/17/17 00:59 Levothyroxine Sodium 125 mcg 125 mcg DAILYBB PO 12/18/16 06:30 01/17/17 06:29 12/18/16 06:13 125 MCG Piperacillin Sod/ Tazobactam Sod/ Dextrose (Zosyn Iv/D5 100ml) 115 ml @ 28.75 mls/ hr Q8H IV 12/18/16 04:00 12/25/16 03:59 12/18/16 11:36 28.75 MLS/HR Miscellaneous Information (Order Awaiting Action) 1 ea QS N/A 12/18/16 16:00 01/17/17 15:59 Senna/Docusate Sodium (Senokot S Tab) 1 tab BID PRN PO 12/18/16 10:00 01/17/17 09:59
[2016-12-18] MEDS: BOOST VANILLA PO SCH ×2 (20:29)
[2016-12-18] MEDS: EZETIMIBE/SIMVASTATIN 10/40 TAB PO SCH (20:31)
[2016-12-18] MEDS: TRAMADOL HCL 50 MG TAB PO PRN (20:47)
[2016-12-18] MEDS: GUAIFENESIN 600 MG TABCR PO SCH (21:18)
[2016-12-19] VITALS (11 sets, daily range): BP systolic 104–139; BP diastolic 59–79; PULSE 65–89; TEMP 36.6–37; O2SAT 90–100
[2016-12-19] MEDS: LEVALBUTEROL 1.25MG/0.5ML NEB INH SCH ×4 (02:09→20:13)
[2016-12-19] MEDS: IPRATROPIUM BROMIDE NEB SOLN 0.02% 2.5 ML VIAL INH SCH ×4 (02:09→20:13)
[2016-12-19] MEDS: PIPERACILL/TAZOBAC IV 3.375 GM in DEXTROSE 5% 100ML IV SCH ×3 (04:26→19:31)
--- NOTE | 2016-12-19 05:52 | Clinical Documentation Query ---
CLINICAL DOCUMENTATION QUERY H&P had stated possibility that the pneumonia could be 2/2 aspiration. This has since fallen off the record. In your clinical opinion is this patient being managed for: ( ) Possible aspiration pneumonia evidenced by Acute on chronic respiratory failure and right apical infiltrate treated with IV Zosyn, aspiration precautions, & speech therapy evaluation. ( ) Not Agree. Please state ruled out in record. Please clarify and document your clinical opinion in the progress notes and discharge summary. Terms such as "probable", "suspected", "likely", "questionable", "possible", or "still to be ruled out" are acceptable. IF IN AGREEMENT, YOU MUST DOCUMENT ABOVE DIAGNOSTIC STATEMENT IN DAILY PROGRESS NOTES AND DISCHARGE SUMMARY. This document is not part of the patient's record. Thank You, Garth Murcia, RN [phone]
[2016-12-19 06:24] LABS: CREATININE 0.91 mg/dl (0.60-1.40)
[2016-12-19] MEDS: LEVOTHYROXINE 125 MCG TAB PO SCH (07:03)
[2016-12-19] MEDS: BOOST VANILLA PO SCH ×4 (07:45→21:02)
[2016-12-19] MEDS: GUAIFENESIN 600 MG TABCR PO SCH ×2 (07:47→21:03)
[2016-12-19] MEDS: PAROXETINE 20 MG TAB PO SCH (07:47)
[2016-12-19] MEDS: ENOXAPARIN 30 MG/0.3 ML SYR SC SCH (07:48)
[2016-12-19] MEDS: PANTOprazole SOD 40 MG TAB PO SCH ×2 (07:48→21:03)
[2016-12-19] MEDS: CHOLECALCIFEROL 1000 INTER.UNIT TAB PO SCH (07:48)
[2016-12-19 08:38] LABS: HEMATOCRIT 34.5 % (42-52); MEAN CELL VOLUME 86.7 fL (80-100); MEAN CORPUSCULAR HEMOGLOBIN 28.1 pg (25-34); MEAN CORPUSCULAR HGB CONC 32.5 g/dl (32-36); MEAN PLATELET VOLUME 9.3 fL (7.4-10.4); PLATELET COUNT 316 K/uL (130-400); RED BLOOD COUNT 3.98 M/uL (4.7-6.1); WHITE BLOOD COUNT 13.21 K/uL (4.8-10.8)
--- NOTE | 2016-12-19 10:24 | PULMONARY CONSULTATION ---
DATE OF CONSULTATION: 12/19/2016 DATE OF CONSULTATION: 12/19/2016. TIME: 9:15 a.m. REPORT OF CONSULTATION: The patient was seen in room 288 bed 2. He is a 66-year-old male with severe chronic obstructive pulmonary disease. Approximately 12 or 13 days before admission, he noted increasing cough, increasing shortness of breath and chest tightness. He began expectorating green sputum. He did not cough up any blood. He saw his primary PA who started him on Levaquin and prednisone. He did not improve significantly. He went back to their office. At that time he was having some lower chest pain. He was then referred to the Emergency Room at [facility] in [place]. According to the patient, they did an evaluation including a CAT scan of the chest. He has had several CAT scans there over the past few months. He was told that he had pneumonia on each side. He states they gave him an IV antibiotic in the ER but did not send him home with any further antibiotics. The following day, which was 12/15/2016, he was very sleepy and fatigued. The following day, he was fatigued again and felt tighter in the chest. The following day, which was 12/17/2016, in addition to the above complaints he had an episode of severe vomiting and then dry heaves. He was uncertain as to why that was happening. He did then come to the ER at [facility] where he was subsequently admitted. The patient states he is feeling a little better. He still feels tight. He states his mucus is still light green in color. He has not coughed up any blood. He has been having a lot of problems really since the fall. He states since May he has not felt right. He was treated for bronchitis in late June and early July. He was then treated again in late August. He went to the ER on October 07 at [place] and he had shortness of breath and back pain. At some point in time at [facility] he had a CAT scan that they thought was somewhat abnormal. They followed that up with a PET scan which was essentially negative. The patient has been on 2 liters of oxygen at bedtime. At home, his usual medicines include nebulizer treatments with DuoNebs that he usually takes twice per day. He also takes Advair 500/50 one puff b.i.d. and Spiriva 1 daily. He is on a number of other medications. That would include ascorbic acid, vitamin D, Difluprednate, Nexium 40 mg b.i.d., Vytorin 10/40 at bedtime, Shanique 180 mg daily p.r.n., fish oil, Vistaril p.r.n., levothyroxine 150 mcg daily, Paxil 40 mg daily, Phenergan p.r.n., stool softener b.i.d., Cialis 2.5 mg daily, testosterone supplementation by Axiron and tramadol p.r.n. The patient also has a pain pump with Dilaudid and clonidine. Reportedly, this prescription is going to be changed to complain Dilaudid because the clonidine is causing hypotension. PAST SURGICAL HISTORY: 1. Appendectomy. 2. Low back surgery. 3. Mastectomy. 4. Hernia repair. 5. Knee surgery. 6. Pain pump insertion. 7. Edwin fundoplication. 8. Bilateral cataract surgery. 9. Insertion and subsequent removal of a pain stimulator. PAST MEDICAL HISTORY: 1. Myopathy. 2. Esophageal stricture 3. Hypogonadism. 4. Gastritis. SOCIAL HISTORY: Tobacco [id number] history but none since 2007. OCCUPATIONAL HISTORY: The patient was in the [employer] for 23 years and had exposure to jet fumes. FAMILY HISTORY: Mother secondary to congestive heart failure. Father with pancreatic cancer and he had some type of heart disease as well. ALLERGIES: CARBAMAZEPINE, GABAPENTIN, IBUPROFEN, NSAIDS. REVIEW OF SYSTEMS: The patient's energy level is low. 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 He is having visual problems on his left eye following a cataract surgery. He states he has been getting treatment for that. His appetite had been down, but he states it is improved in the hospital. He has not had any further nausea or vomiting. He has some degree of chronic constipation. Denies urinary complaints. He has chronic pain related to his back issues and he has some type of burning pain in his feet. The remainder of the review of systems is negative except as noted above. PHYSICAL EXAMINATION: GENERAL: The patient is a pleasant 66-year-old male who was cooperative, alert and oriented. He did not appear in any distress at rest. He also did not cough during my exam. VITAL SIGNS: The patient's weight is 55.4 kilograms with a BMI of only 19.1. HEAD, EYES, EARS, NOSE, AND THROAT: Eye exam showed implants. Nares had nasal cannula in place. Mouth exam showed an absence of teeth. NECK: Palpation of the neck reveals no lymph nodes or masses. CHEST: Was of normal expansion and development. His temperature is 36.6. HEART: Heart rate was 70 per minute. The rhythm was regular. LUNGS: Lung johnson revealed fairly good breath sounds. No wheezes were heard. Respiratory rate was 18 breaths per minute. Oxygen saturation was 96% on 2 liters. Blood pressure this morning 108/67. ABDOMEN: Inspection of the abdomen reveals a pain pump in the left lower quadrant. Bowel sounds were active and were normal. There was no tenderness to palpation or definite mass. EXTREMITIES: Showed no cyanosis, clubbing or edema. LABORATORY DATA: White blood cell count on admission was 8.35. Today it is 13.21. Hemoglobin on admission 12.8 and today 11.2. Platelets were 258,000. INR was 1 and PTT 32.7. Blood gas on admission showed a pH of 7.48 with a pCO2 of 37 and a pO2 of 81 done on 2 liters. Electrolytes on admission showed sodium 138, potassium 4.0, chloride 100, bicarbonate 33. BUN was 12 with a creatinine of 0.99. Glucose was 123. Liver functions were normal. Troponin was negative. ProBNP was normal at 168. Globulin was high at 4.7 with albumin of only 2.6. TSH was 0.072. Hepatitis C screen was negative. The patient's chest x-ray on admission showed emphysematous changes. Cannot exclude a right apical infiltrate. We do not have the report from [facility] including the CAT scan report. Stool for C. diff was negative. Sputum culture is pending. He did have many polys as well as many gram positive and gram negative bacilli. Blood cultures thus far negative. MRSA nasal swab was negative. IMPRESSIONS: 1. Pneumonia. 2. Chronic obstructive pulmonary disease exacerbation. COMMENTS AND RECOMMENDATIONS: The patient has a history of severe COPD. His FEV1 is only 35% of predicted. The FEV1/FVC ratio is only 41%. Diffusion is 37%. These findings strongly suggest emphysema. He has been having recurring respiratory tract infections. He seems to be clinically improving, although he does not seem to say that he is feeling all that much better. He is on Zosyn. He is also on prednisone at 40 mg daily. He is also getting every 6 hour neb treatments with levalbuterol and ipratropium. I agree with all the above. As he improves, the Zosyn could be changed to Augmentin. The patient in the past had been on for several months continuous azithromycin. This was stopped last fall. He seems to have had more infections or exacerbations since then. I am not in favor of daily antibiotic therapy, but I believe we could consider giving a Z-BALDEMAR the first 5 days of every month as a trial to see if this might reduce his exacerbations. Likewise, the alternative course could be to consider a small daily dose of prednisone such as 5-10 mg. This can be determined after he is discharged. The patient should be set up for an appointment to see me 2-3 weeks after his discharge for followup. Thank you for asking me to assist in his care.
--- NOTE | 2016-12-19 16:03 | Progress Note ---
Medicine Progress Note Date & Time of Visit: December 19, 2016 at 15:47. Subjective Pt was seen and examined Lying in bed with no distress Pt said that pain is under controlled his breathing and his cough improved has not had a BM yet Continue to have chest wall tenderness when coughing denies any fever, palpitation and dizziness Objective Last 8 Hrs Date Time Temp Pulse Resp B/P Pulse Ox O2 Delivery O2 Flow Rate FiO2 12/19/16 14:18 75 16 96 Nasal Cannula 2.0 12/19/16 12:00 Nasal Cannula 2.0 12/19/16 11:36 36.7 73 18 129/71 99 Nasal Cannula 2.0 12/19/16 08:00 Nasal Cannula 2.0 Physical Exam: General- No acute distress Head- atraumatic Eyes- PERRL, EOMI ENT- oropharynx clear Neck- supple, no JVD Lungs- Coarse breath sound Heart- regular rhythm Abdomen- normal bowel sounds, soft, nontender, Pump located in LLQ Extremities-no calf tenderness Neuro- alert, oriented x 3; PERRL, EOMI Skin- warm & dry Laboratory Results: Last 24 Hours Test 12/19/16 05:11 White Blood Count 13.21 K/uL Red Blood Count 3.98 M/uL Hemoglobin 11.2 g/dL Hematocrit 34.5 % Mean Corpuscular Volume 86.7 fL Mean Corpuscular Hemoglobin 28.1 pg Mean Corpuscular Hemoglobin Concent 32.5 g/dl RDW Standard Deviation 43.1 fL RDW Coefficient of Variation 13.5 % Platelet Count 316 K/uL Mean Platelet Volume 9.3 fL Creatinine 0.91 mg/dl Est Creatinine Clear Calc Drug Dose 60.9 ml/min Estimated GFR () 100.0 Estimated GFR (Non- 86.3 Assessment & Plan Acute on chronic respiratory failure Due COPD exacerbation secondary to pneumonia Emphysematous change with developing components of congestive failure versus right apical infiltrative change. On IV zosyn, will change to PO Augmentin Continue DuoNeb treatment continue prednisone 40mg daily Pulmonary consulted: Recommended possible a 5 days course of zpac on the 1st of every month as a prophylaxis to avoid exacerbation also a low dose daily steroid (5 - 10mg) Follow up with pulmonary in 2- 3 weeks when discharge Chest Pain Atypical, mostly due to pleuritic chest pain and Costochondritis from coughing CM are negative EKG did not showed any ST changes Echo * The left ventricle is normal in size. * There is normal left ventricular wall thickness. * Ejection Fraction = >70 %. * The left ventricle is hyperdynamic. * No segmental left ventricular wall motion abnormalities are noted. * The left ventricular wall motion is normal. Constipation had diarrhea on admission, now constipates continue Senokot prn Hypotension possibly from intrathecal clonidine Case discussed with Dr. Bell, clonidine will remove from the pump BP stable Intractable back pain Continue pain pump as per pain management Hypothyroidism. TSH is low decreased levothyroxine to 125 mcg Repeat TSH in 6 week Chronic anemia Stable GERD sp Edwin fundoplication. DVT px On Lovenox CODE STATUS FULL CODE Consultants: Pain management Pulmonary Current Inpatient Medications: Current Inpatient Medications Medications (Trade) Dose Ordered Sig/Jo Route Start Time Stop Time Status Last Admin Dose Admin Enoxaparin Sodium (Lovenox Inj) 30 mg Q24H SC 12/18/16 09:00 01/17/17 08:59 12/19/16 07:48 30 MG Ondansetron HCl 4 mg 4 mg Q6H PRN IV 12/17/16 23:30 01/16/17 23:29 Promethazine HCl/ Sodium Chloride (Phenergan Inj/ Nss 50ml) 50.5 ml @ 204 mls/hr Q6H PRN IV 12/17/16 23:30 01/16/17 23:29 Piperacillin Sod/ Tazobactam Sod (Consult) 1 ea UD PRN N/A 12/18/16 09:00 01/17/17 08:59 Prednisone (PredniSONE TAB) 40 mg DAILY PO 12/18/16 09:00 12/23/16 08:59 12/19/16 07:47 40 MG Cholecalciferol (Vitamin D Tab) 1,000 inter.unit DAILY PO 12/18/16 09:00 01/17/17 08:59 12/19/16 07:48 1,000 INTER.UNIT Ezetimibe/ Simvastatin (Vytorin 10/40 Tab) 1 tab HS PO 12/18/16 21:00 01/17/17 20:59 12/18/16 20:31 1 TAB Fexofenadine HCl (Shanique Tab) 180 mg DAILY PRN PO 12/17/16 23:30 01/16/17 23:29 Paroxetine HCl (pAXil TAB) 40 mg DAILY PO 12/18/16 09:00 01/17/17 08:59 12/19/16 07:47 40 MG Tramadol HCl (Ultram Tab) 50 mg Q6H PRN PO 12/17/16 23:30 01/16/17 23:29 12/18/16 20:47 50 MG Miscellaneous Information (Order Awaiting Action) 1 ea QS N/A 12/18/16 08:00 01/17/17 07:59 Pantoprazole Sodium (Protonix Tab) 40 mg BID PO 12/18/16 09:00 01/17/17 08:59 12/19/16 07:48 40 MG Hydroxyzine HCl (Vistaril Tab) 25 mg BID PRN PO 12/17/16 23:30 01/16/17 23:29 Ipratropium Shock (Atrovent 0.02% 0.5MG/2.5ML Neb) 0.5 mg Q6R INH 12/18/16 03:00 01/17/17 02:59 12/19/16 14:17 0.5 MG Levalbuterol (Xopenex 1.25MG/ 0.5ML Neb) 1.25 mg Q6R INH 12/18/16 03:00 01/17/17 02:59 12/19/16 14:18 1.25 MG Ipratropium Shock (Atrovent 0.02% 0.5MG/2.5ML Neb) 0.5 mg Q4H PRN INH 12/18/16 01:00 01/17/17 00:59 Levalbuterol (Xopenex 1.25MG/ 0.5ML Neb) 1.25 mg Q4H PRN INH 12/18/16 01:00 01/17/17 00:59 Levothyroxine Sodium 125 mcg 125 mcg DAILYBB PO 12/18/16 06:30 01/17/17 06:29 12/19/16 07:03 125 MCG Piperacillin Sod/ Tazobactam Sod/ Dextrose (Zosyn Iv/D5 100ml) 115 ml @ 28.75 mls/ hr Q8H IV 12/18/16 04:00 12/25/16 03:59 12/19/16 12:09 28.75 MLS/HR Miscellaneous Information (Order Awaiting Action) 1 ea QS N/A 12/18/16 16:00 01/17/17 15:59 Senna/Docusate Sodium (Senokot S Tab) 1 tab BID PRN PO 12/18/16 10:00 01/17/17 09:59 12/19/16 07:48 1 TAB Enteral Nutritional Formula (Boost) 1 can BID PO 12/18/16 21:00 01/17/17 20:59 12/18/16 20:29 1 CAN Guaifenesin (Mucinex Contr Rel Tab) 600 mg Q12 PO 12/18/16 21:00 01/17/17 20:59 12/19/16 07:47 600 MG
--- NOTE | 2016-12-19 19:04 | Progress Note ---
Progress Note Date of Service December 19, 2016. Progress Note Pt may use his own bromfenac ophthalmic solution 0.075 %. apply 1 drop left eye BID
[2016-12-19] MEDS ORDERED: NURSING VERBAL MED ORDER ONE (19:15)
[2016-12-19] MEDS: AXIRON EXT SCH (19:51)
[2016-12-19] MEDS: DIFLUPREDNATE 0.05% OP SCH (19:52)
[2016-12-19] MEDS: BROMSITE 0.075% OP SCH (19:53)
[2016-12-19] MEDS: EZETIMIBE/SIMVASTATIN 10/40 TAB PO SCH (21:03)
[2016-12-19] MEDS: TRAMADOL HCL 50 MG TAB PO PRN (21:05)
[2016-12-20] VITALS (10 sets, daily range): BP systolic 105–144; BP diastolic 65–76; PULSE 51–91; TEMP 36.3–36.7; O2SAT 95–100
[2016-12-20] MEDS: IPRATROPIUM BROMIDE NEB SOLN 0.02% 2.5 ML VIAL INH SCH ×4 (02:22→19:21)
[2016-12-20] MEDS: LEVALBUTEROL 1.25MG/0.5ML NEB INH SCH ×4 (02:22→19:21)
[2016-12-20] MEDS: PIPERACILL/TAZOBAC IV 3.375 GM in DEXTROSE 5% 100ML IV SCH ×3 (04:06→20:16)
[2016-12-20] MEDS: LEVOTHYROXINE 125 MCG TAB PO SCH (06:12)
[2016-12-20 07:12] LABS: CREATININE 0.95 mg/dl (0.60-1.40)
[2016-12-20] MEDS: BOOST VANILLA PO SCH ×4 (08:25→20:16)
[2016-12-20] MEDS: DIFLUPREDNATE 0.05% OP SCH ×2 (08:25→20:19)
[2016-12-20] MEDS: CHOLECALCIFEROL 1000 INTER.UNIT TAB PO SCH (08:25)
[2016-12-20] MEDS: BROMSITE 0.075% OP SCH ×2 (08:25→20:19)
[2016-12-20] MEDS: PAROXETINE 20 MG TAB PO SCH (08:25)
[2016-12-20] MEDS: GUAIFENESIN 600 MG TABCR PO SCH ×2 (08:25→20:20)
[2016-12-20] MEDS: PANTOprazole SOD 40 MG TAB PO SCH ×2 (08:25→20:21)
[2016-12-20] MEDS: ENOXAPARIN 30 MG/0.3 ML SYR SC SCH (08:26)
--- NOTE | 2016-12-20 09:56 | PROGRESS NOTE ---
DATE: 12/20/2016 Plan of care discussed with Dr. Marina. CHIEF COMPLAINT: Intrathecal pump refill with removal of clonidine. SUBJECTIVE: Mr. Uriostegui is a 66-year-old white male who is well known to the pain service with a history of chronic intractable low back and lower extremity neuropathic radicular pain secondary to lumbar post-laminectomy syndrome. The patient has peripheral neuropathic pain as well. He describes the pain as burning and dysesthetic in nature in the feet nondermatomal and bilateral fashion. Intrathecal clonidine was added to his hydromorphone with a recent intrathecal pump refill. The patient presented to the hospital with hypotension and is concerned about contributions from intrathecal clonidine. It has therefore been recommended that clonidine be removed from his intrathecal pump, which will be completed at today's visit. He reported 30%-40% improvement in his dysesthetic and paresthetic type pains with use of the clonidine, but was concerned over the side effect profile. The patient indicates adequate pain control at this time, rating his pain at 2/10. His pain continues to range between 2-6/10. He denies all further constitutional complaints at this time, specifically denying fevers, chills or night sweats. OBJECTIVE: VITAL SIGNS: Temperature 36.7 degrees Celsius, pulse 73, respirations 16, BP 122/70, and pulse oximetry 96% on 2 liters of oxygen via nasal cannula. GENERAL: Mr. Uriostegui is lying quietly upon entering the room in no acute distress. Speech and thought process are appropriate. Mood and affect is appropriate. Cognition is intact. ABDOMEN: Pump present in the left lower quadrant is without evidence of edema, erythema or skin breakdown. The pump is nonmobile. NEUROLOGIC: Cranial nerves grossly intact. Ambulatory function was not witnessed. ASSESSMENT: 1. Chronic intractable low back and lower extremity radicular/neuropathic pain secondary to lumbar post-laminectomy syndrome, requiring implantation of intrathecal pump and catheter delivery system. 2. Peripheral neuropathic pain -- bilateral feet. 3. Low grade hypotension upon admission. 4. Depressive disorder. TREATMENT AND RECOMMENDATIONS: 1. Intrathecal pump was refilled today with removal of clonidine. The patient will maintain hydromorphone at current dosing without change -- refer to pump print out in EMR as well as the pump refill procedure note below. 2. No other changes to the current medical regimen have been recommended. Will continue to follow the patient in the outpatient setting with plans for his next scheduled pump refill on 03/20/2017 at 1000 or before as needed. PUMP REFILL PROCEDURE NOTE: Inherent risks and potential benefits were reviewed with the patient. A time-out performed to identify the patient, his allergies and intrathecal medications. The pump was then refilled successfully by Veronica Loyd RN. The left lower quadrant and abdomen was prepped with ChloraPrep followed by Betadine x3. Sterile drapes were applied and while maintaining sterile technique, the pump reservoir site was accessed using a template and a 22-gauge 1.5-inch noncoring Syed needle. At this time, 16 mL of residual volume was removed from the pump and discarded. Calculated residual volume was 15.2 mL. At this time, the pump was refilled with 19 mL solution of hydromorphone preservative free 15 mg per mL while using a bacteriostatic filter and maintaining negative pressure. This does indicate a change in intrathecal medications with removal of clonidine. The needle was then withdrawn and hemostasis was maintained. The abdomen was cleansed and dried and sterile bandages placed. The pump was then reprogrammed to deliver hydromorphone 2.635 mg per day. The appropriate instructions were provided for the patient, who verbalized understanding. The patient was scheduled for his next pump refill through the pain clinic on 03/20/2017 at 1000. He will return to our clinic at that time or before as needed. [facility]
--- NOTE | 2016-12-20 16:45 | Pulmonology Progress Note ---
Pulmonary Progress Note Date of Service December 20, 2016. Attending Dr. Rader Subjective Doing well, pr patient, he is back at his baseline. Objective General: NAD, thin male Heent: NC/AT Lungs: Diminished breath sounds b/l, no wheezing Abd: soft Ext: No edema Assessment & Plan COPD exacerbation Continue steroid taper, bronchodilators Resume Advair and Spiriva Zosyn may be changed to Augmentin. To follow up with Dr Willis in 2-3 weeks. To decide as outpatient whether he needs to remain on chronic steroids and whether he would benefit from monthly Zithromax therapy May be discharged from a pulmonary perspective Time spent with patient, reviewing the chart, discussing with primary physician 25 minutes Data Medications: Current Inpatient Medications Medications (Trade) Dose Ordered Sig/Jo Route Start Time Stop Time Status Last Admin Dose Admin Enoxaparin Sodium (Lovenox Inj) 30 mg Q24H SC 12/18/16 09:00 01/17/17 08:59 12/20/16 08:26 30 MG Ondansetron HCl 4 mg 4 mg Q6H PRN IV 12/17/16 23:30 01/16/17 23:29 Promethazine HCl/ Sodium Chloride (Phenergan Inj/ Nss 50ml) 50.5 ml @ 204 mls/hr Q6H PRN IV 12/17/16 23:30 01/16/17 23:29 Piperacillin Sod/ Tazobactam Sod (Consult) 1 ea UD PRN N/A 12/18/16 09:00 01/17/17 08:59 Prednisone (PredniSONE TAB) 40 mg DAILY PO 12/18/16 09:00 12/23/16 08:59 12/20/16 08:25 40 MG Cholecalciferol (Vitamin D Tab) 1,000 inter.unit DAILY PO 12/18/16 09:00 01/17/17 08:59 12/20/16 08:25 1,000 INTER.UNIT Ezetimibe/ Simvastatin (Vytorin 10/40 Tab) 1 tab HS PO 12/18/16 21:00 01/17/17 20:59 12/19/16 21:03 1 TAB Fexofenadine HCl (Shanique Tab) 180 mg DAILY PRN PO 12/17/16 23:30 01/16/17 23:29 Paroxetine HCl (pAXil TAB) 40 mg DAILY PO 12/18/16 09:00 01/17/17 08:59 12/20/16 08:25 40 MG Tramadol HCl (Ultram Tab) 50 mg Q6H PRN PO 12/17/16 23:30 01/16/17 23:29 12/19/16 21:05 50 MG Pantoprazole Sodium (Protonix Tab) 40 mg BID PO 12/18/16 09:00 01/17/17 08:59 12/20/16 08:25 40 MG Hydroxyzine HCl (Vistaril Tab) 25 mg BID PRN PO 12/17/16 23:30 01/16/17 23:29 Ipratropium [place]dido (Atrovent 0.02% 0.5MG/2.5ML Neb) 0.5 mg Q6R INH 12/18/16 03:00 01/17/17 02:59 12/20/16 14:31 0.5 MG Levalbuterol (Xopenex 1.25MG/ 0.5ML Neb) 1.25 mg Q6R INH 12/18/16 03:00 01/17/17 02:59 12/20/16 14:31 1.25 MG Ipratropium [place]dido (Atrovent 0.02% 0.5MG/2.5ML Neb) 0.5 mg Q4H PRN INH 12/18/16 01:00 01/17/17 00:59 Levalbuterol (Xopenex 1.25MG/ 0.5ML Neb) 1.25 mg Q4H PRN INH 12/18/16 01:00 01/17/17 00:59 Levothyroxine Sodium 125 mcg 125 mcg DAILYBB PO 12/18/16 06:30 01/17/17 06:29 12/20/16 06:12 125 MCG Piperacillin Sod/ Tazobactam Sod/ Dextrose (Zosyn Iv/D5 100ml) 115 ml @ 28.75 mls/ hr Q8H IV 12/18/16 04:00 12/25/16 03:59 12/20/16 11:44 28.75 MLS/HR Senna/Docusate Sodium (Senokot S Tab) 1 tab BID PRN PO 12/18/16 10:00 01/17/17 09:59 12/19/16 07:48 1 TAB Enteral Nutritional Formula (Boost) 1 can BID PO 12/18/16 21:00 01/17/17 20:59 12/19/16 21:02 1 CAN Guaifenesin (Mucinex Contr Rel Tab) 600 mg Q12 PO 12/18/16 21:00 01/17/17 20:59 12/20/16 08:25 600 MG Non-Formulary Medication (Non-Formulary Patient'S Own Med) 1 ea HS EXT 12/19/16 21:00 01/18/17 20:59 12/19/16 19:51 1 EA Non-Formulary Medication (Non-Formulary Patient'S Own Med) 1 ea BID OP 12/19/16 21:00 01/18/17 20:59 12/20/16 08:25 1 EA I & O: 24-Hour Column 12/20/16 08:00 Intake Total 1547 ml Output Total 250 ml Balance 1297 ml Vital Signs: Date Time Temp Pulse Resp B/P Pulse Ox O2 Delivery O2 Flow Rate FiO2 12/20/16 14:55 36.5 73 16 105/65 95 Room Air 12/20/16 14:31 91 18 98 Nasal Cannula 2.0 12/20/16 12:00 Nasal Cannula 2.0 12/20/16 11:17 36.6 74 18 123/72 97 Nasal Cannula 2.0 12/20/16 08:05 36.7 73 16 122/70 96 Nasal Cannula 2.0 12/20/16 08:00 Nasal Cannula 2.0 12/20/16 07:15 51 18 98 Nasal Cannula 2.0 12/20/16 04:36 36.6 70 18 144/76 100 Nasal Cannula 2.0 12/20/16 04:00 Nasal Cannula 2.0 12/20/16 02:22 68 18 97 Nasal Cannula 2.0 12/20/16 00:00 Nasal Cannula 2.0 12/19/16 23:27 36.7 77 18 122/60 99 2.0 12/19/16 20:35 37.0 71 18 139/79 100 12/19/16 20:13 84 18 90 Nasal Cannula 2.0 12/19/16 20:00 Nasal Cannula 2.0 Laboratory Results: Last 24 Hours Test 12/20/16 06:24 Creatinine 0.95 mg/dl Est Creatinine Clear Calc Drug Dose 58.8 ml/min Estimated GFR () 94.9 Estimated GFR (Non- 81.9
--- NOTE | 2016-12-20 17:23 | Progress Note ---
Medicine Progress Note Date & Time of Visit: December 20, 2016 at 17:15. Subjective Pt was seen and examined Sitting in bed comfortable with no distress Pt said that he feels much better he said that his breathing improved significantly he said that his pain is better Pain management filled his opioid pump today. Denies any chest pain, palpitation, dizziness Objective Last 8 Hrs Date Time Temp Pulse Resp B/P Pulse Ox O2 Delivery O2 Flow Rate FiO2 12/20/16 14:55 36.5 73 16 105/65 95 Room Air 12/20/16 14:31 91 18 98 Nasal Cannula 2.0 12/20/16 12:00 Nasal Cannula 2.0 12/20/16 11:17 36.6 74 18 123/72 97 Nasal Cannula 2.0 Physical Exam: General- No acute distress Head- atraumatic Eyes- PERRL, EOMI ENT- oropharynx clear Neck- supple, no JVD Lungs- Poor air entry, no wheezing Heart- regular rhythm Abdomen- normal bowel sounds, soft, nontender, Pump located in LLQ Extremities-no calf tenderness Neuro- alert, oriented x 3; PERRL, EOMI Skin- warm & dry Laboratory Results: Last 24 Hours Test 12/20/16 06:24 Creatinine 0.95 mg/dl Est Creatinine Clear Calc Drug Dose 58.8 ml/min Estimated GFR () 94.9 Estimated GFR (Non- 81.9 Assessment & Plan Acute on chronic respiratory failure Due COPD exacerbation secondary to pneumonia Emphysematous change with developing components of congestive failure versus right apical infiltrative change. On IV zosyn, will change to PO Augmentin Continue DuoNeb treatment continue prednisone 40mg daily Pulmonary consulted: Recommended possible a 5 days course of zpac on the 1st week of every month as a prophylaxis to avoid exacerbation also a low dose daily steroid (5 - 10mg) Follow up with pulmonary in 2- 3 weeks when discharge Clinically improved significantly Ok to discharge from pulmonary standpoint. Chest Pain Atypical, mostly due to pleuritic chest pain and Costochondritis from coughing CM are negative EKG did not showed any ST changes Echo * The left ventricle is normal in size. * There is normal left ventricular wall thickness. * Ejection Fraction = >70 %. * The left ventricle is hyperdynamic. * No segmental left ventricular wall motion abnormalities are noted. * The left ventricular wall motion is normal. Constipation had diarrhea on admission, now constipates continue Senokot prn Hypotension possibly from intrathecal clonidine Case discussed with Dr. Bell, clonidine will remove from the pump BP stable Intractable back pain his pump was filled with hydromorphone without the clonidine Continue pain pump as per pain management Hypothyroidism. TSH is low decreased levothyroxine to 125 mcg Repeat TSH in 6 week Chronic anemia Stable GERD sp Edwin fundoplication. DVT px On Lovenox CODE STATUS FULL CODE Consultants: Pain management Pulmonary Current Inpatient Medications: Current Inpatient Medications Medications (Trade) Dose Ordered Sig/Jo Route Start Time Stop Time Status Last Admin Dose Admin Enoxaparin Sodium (Lovenox Inj) 30 mg Q24H SC 12/18/16 09:00 01/17/17 08:59 12/20/16 08:26 30 MG Ondansetron HCl 4 mg 4 mg Q6H PRN IV 12/17/16 23:30 01/16/17 23:29 Promethazine HCl/ Sodium Chloride (Phenergan Inj/ Nss 50ml) 50.5 ml @ 204 mls/hr Q6H PRN IV 12/17/16 23:30 01/16/17 23:29 Piperacillin Sod/ Tazobactam Sod (Consult) 1 ea UD PRN N/A 12/18/16 09:00 01/17/17 08:59 Prednisone (PredniSONE TAB) 40 mg DAILY PO 12/18/16 09:00 12/23/16 08:59 12/20/16 08:25 40 MG Cholecalciferol (Vitamin D Tab) 1,000 inter.unit DAILY PO 12/18/16 09:00 01/17/17 08:59 12/20/16 08:25 1,000 INTER.UNIT Ezetimibe/ Simvastatin (Vytorin 10/40 Tab) 1 tab HS PO 12/18/16 21:00 01/17/17 20:59 12/19/16 21:03 1 TAB Fexofenadine HCl (Shanique Tab) 180 mg DAILY PRN PO 12/17/16 23:30 01/16/17 23:29 Paroxetine HCl (pAXil TAB) 40 mg DAILY PO 12/18/16 09:00 01/17/17 08:59 12/20/16 08:25 40 MG Tramadol HCl (Ultram Tab) 50 mg Q6H PRN PO 12/17/16 23:30 01/16/17 23:29 12/19/16 21:05 50 MG Pantoprazole Sodium (Protonix Tab) 40 mg BID PO 12/18/16 09:00 01/17/17 08:59 12/20/16 08:25 40 MG Hydroxyzine HCl (Vistaril Tab) 25 mg BID PRN PO 12/17/16 23:30 01/16/17 23:29 Ipratropium [place] (Atrovent 0.02% 0.5MG/2.5ML Neb) 0.5 mg Q6R INH 12/18/16 03:00 01/17/17 02:59 12/20/16 14:31 0.5 MG Levalbuterol (Xopenex 1.25MG/ 0.5ML Neb) 1.25 mg Q6R INH 12/18/16 03:00 01/17/17 02:59 12/20/16 14:31 1.25 MG Ipratropium [place] (Atrovent 0.02% 0.5MG/2.5ML Neb) 0.5 mg Q4H PRN INH 12/18/16 01:00 01/17/17 00:59 Levalbuterol (Xopenex 1.25MG/ 0.5ML Neb) 1.25 mg Q4H PRN INH 12/18/16 01:00 01/17/17 00:59 Levothyroxine Sodium 125 mcg 125 mcg DAILYBB PO 12/18/16 06:30 01/17/17 06:29 12/20/16 06:12 125 MCG Piperacillin Sod/ Tazobactam Sod/ Dextrose (Zosyn Iv/D5 100ml) 115 ml @ 28.75 mls/ hr Q8H IV 12/18/16 04:00 12/25/16 03:59 12/20/16 11:44 28.75 MLS/HR Senna/Docusate Sodium (Senokot S Tab) 1 tab BID PRN PO 12/18/16 10:00 01/17/17 09:59 12/19/16 07:48 1 TAB Enteral Nutritional Formula (Boost) 1 can BID PO 12/18/16 21:00 01/17/17 20:59 12/19/16 21:02 1 CAN Guaifenesin (Mucinex Contr Rel Tab) 600 mg Q12 PO 12/18/16 21:00 01/17/17 20:59 12/20/16 08:25 600 MG Non-Formulary Medication (Non-Formulary Patient'S Own Med) 1 ea HS EXT 12/19/16 21:00 01/18/17 20:59 12/19/16 19:51 1 EA Non-Formulary Medication (Non-Formulary Patient'S Own Med) 1 ea BID OP 12/19/16 21:00 01/18/17 20:59 12/20/16 08:25 1 EA
[2016-12-20] MEDS: AXIRON EXT SCH (18:55)
[2016-12-20] MEDS: EZETIMIBE/SIMVASTATIN 10/40 TAB PO SCH (20:20)
[2016-12-20] MEDS ORDERED: AMOX875T PO (20:53)
[2016-12-20] MEDS ORDERED: XPNINS1255 INH (20:53)
[2016-12-20] MEDS ORDERED: ATRINS INH (20:53)
[2016-12-20] MEDS ORDERED: SYN125 PO (20:53)
--- NOTE | 2016-12-20 21:01 | Discharge Instructions ---
Discharge Instructions Date of Service December 20, 2016. Admission Reason for Admission: Respiratory Failure, Acute On Chronic Discharge Discharge Diagnosis / Problem: Acute on chronic respiratory failure,COPD exacerbation secondary pneumonia Discharge Goals Goal(s): Decrease discomfort, Improve function, Improve disease control Activity Recommendations Activity Limitations: resume your previous activity (as tolerated) . Instructions / Follow-Up Instructions / Follow-Up Please call your primary care provider to schedule follow up appointment with your PCP within 1 week Follow up appointment with pulmonary Dr. Willis between 2 to 3 weeks Follow up with Pain management Complete the course of antibiotic complete steroid tape dose Levothyroxine was decreased to 125mcg daily check your TSH (thyroid marker) in 6- 8 weeks (your PCP will order it for you) Current Hospital Diet Patient's current hospital diet: Low Lactose Diet Discharge Diet Recommended Diet: Low Lactose Diet Pending Studies Studies pending at discharge: no Medical Emergencies . Who to Call and When: Medical Emergencies: If at any time you feel your situation is an emergency, please call 911 immediately. . Non-Emergent Contact Non-Emergency issues call your: Primary Care Provider, Specialist (Pain management ) Call Non-Emergent contact if: you have a fever, your pain is not controlled, your pain is worsening, you have any medication questions . . "Provider Documentation" section prepared by Chanell Breaux. . VTE Core Measure Inpt VTE Proph given/why not?: Enoxaparin (Lovenox)SQ
[2016-12-21] MEDS: LEVALBUTEROL 1.25MG/0.5ML NEB INH SCH ×2 (02:19→07:26)
[2016-12-21] MEDS: IPRATROPIUM BROMIDE NEB SOLN 0.02% 2.5 ML VIAL INH SCH ×2 (02:19→07:26)
[2016-12-21 02:20] VITALS: PULSE 87; O2SAT 99
[2016-12-21] MEDS: PIPERACILL/TAZOBAC IV 3.375 GM in DEXTROSE 5% 100ML IV SCH ×2 (03:01→11:29)
[2016-12-21 04:52] VITALS: BP 93/51; PULSE 77; TEMP 37; O2SAT 97
[2016-12-21] MEDS: LEVOTHYROXINE 125 MCG TAB PO SCH (05:51)
[2016-12-21 06:30] LABS: COMPLETE YES; EOS % 0.3 %; HEMATOCRIT 35.2 % (42-52); IG% 0.3 %; LYMPH % 16.2 %; LYMPH ABS # 1.48 K/uL (1.2-3.4); MEAN CELL VOLUME 87.6 fL (80-100); MEAN CORPUSCULAR HEMOGLOBIN 27.9 pg (25-34); MEAN CORPUSCULAR HGB CONC 31.8 g/dl (32-36); MEAN PLATELET VOLUME 8.9 fL (7.4-10.4); MONO % 8.4 %; NEUT % 74.8 %; PLATELET COUNT 341 K/uL (130-400); RED BLOOD COUNT 4.02 M/uL (4.7-6.1); WHITE BLOOD COUNT 9.14 K/uL (4.8-10.8)
[2016-12-21 06:59] LABS: CREATININE 0.98 mg/dl (0.60-1.40)
[2016-12-21 07:28] VITALS: PULSE 87; O2SAT 99
[2016-12-21 07:29] VITALS: BP 125/75; PULSE 75; TEMP 36.7; O2SAT 95
[2016-12-21] MEDS: BOOST VANILLA PO SCH ×2 (07:40)
[2016-12-21] MEDS: BROMSITE 0.075% OP SCH (07:41)
[2016-12-21] MEDS: DIFLUPREDNATE 0.05% OP SCH (07:41)
[2016-12-21] MEDS: PANTOprazole SOD 40 MG TAB PO SCH (07:42)
[2016-12-21] MEDS: PAROXETINE 20 MG TAB PO SCH (07:42)
[2016-12-21] MEDS: ENOXAPARIN 30 MG/0.3 ML SYR SC SCH (07:42)
[2016-12-21] MEDS: GUAIFENESIN 600 MG TABCR PO SCH (07:42)
[2016-12-21] MEDS: CHOLECALCIFEROL 1000 INTER.UNIT TAB PO SCH (07:42)
--- NOTE | 2016-12-21 10:35 | Progress Note ---
Internal Med Progress Note Date of Service: December 21, 2016. Provider Documentation: SUBJECTIVE: The patient was seen and examined Feels a lot better today Getting PT and doing better Ready to be discharged OBJECTIVE: Vital Signs-as noted below Exam: General-No distress at rest Eyes-normal ENT-normal Neck-supple Lungs-Decreased breath sound bilaterally Heart-Regular Abdomen-benign,no masses,bowel sound present Extremities-No edema Neuro-AAOx3 No focal sensory and or motor deficit Lab data as noted below. ASSESSMENT & PLAN: Acute on chronic respiratory failure Due COPD exacerbation secondary to pneumonia Emphysematous change with developing components of congestive failure versus right apical infiltrative change. Was on IV Zosyn, changed to PO Augmentin Continue DuoNeb treatment Continue prednisone 40mg daily with taper on discharge Pulmonary consulted: Recommended possible a 5 days course of Z-pac on the 1st week of every month as a prophylaxis to avoid exacerbation Also a low dose daily steroid (5 - 10mg) Follow up with pulmonary in 2- 3 weeks when discharge Clinically improved significantly Ok to discharge from pulmonary standpoint. Clinically better to be discharged Chest Pain Atypical, mostly due to pleuritic chest pain and Costochondritis from coughing No ACS EKG did not showed any ST changes Echo * The left ventricle is normal in size. * There is normal left ventricular wall thickness. * Ejection Fraction = >70 %. * The left ventricle is hyperdynamic. * No segmental left ventricular wall motion abnormalities are noted. * The left ventricular wall motion is normal. Constipation had diarrhea on admission, now constipates continue Senokot prn Hypotension possibly from intrathecal clonidine Case discussed with Dr. Bell, clonidine will remove from the pump BP stable Intractable back pain his pump was filled with hydromorphone without the clonidine Continue pain pump as per pain management Pain Pump was changed on 12/20/16-will have OP follow up with pain therapist Hypothyroidism. TSH is low decreased levothyroxine to 125 mcg Repeat TSH in 6 week Chronic anemia Stable GERD sp Edwin fundoplication. DVT px On Lovenox CODE STATUS FULL CODE Consultants: Pain management Pulmonary DISPOSITION Discharge today Vital Signs: Date Time Temp Pulse Resp B/P Pulse Ox O2 Delivery O2 Flow Rate FiO2 12/21/16 08:00 Nasal Cannula 2.0 12/21/16 07:29 36.7 75 18 125/75 95 Room Air 12/21/16 07:28 87 18 99 Nasal Cannula 2.0 12/21/16 04:52 37.0 77 18 93/51 97 Nasal Cannula 2.0 12/21/16 04:00 Nasal Cannula 2.0 99 12/21/16 02:20 87 18 99 Nasal Cannula 2.0 12/21/16 00:00 Nasal Cannula 2.0 99 12/20/16 22:57 36.6 73 18 119/73 99 Nasal Cannula 2.0 12/20/16 20:00 Nasal Cannula 2.0 99 12/20/16 19:21 87 18 99 Nasal Cannula 2.0 12/20/16 19:19 36.3 64 20 131/75 99 Nasal Cannula 2.0 12/20/16 16:00 Nasal Cannula 2.0 12/20/16 14:55 36.5 73 16 105/65 95 Room Air 12/20/16 14:31 91 18 98 Nasal Cannula 2.0 12/20/16 12:00 Nasal Cannula 2.0 12/20/16 11:17 36.6 74 18 123/72 97 Nasal Cannula 2.0 Lab Results: Results Past 24 Hours Test 12/21/16 06:13 Range/Units White Blood Count 9.14 4.8-10.8 K/uL Red Blood Count 4.02 4.7-6.1 M/uL Hemoglobin 11.2 14.0-18.0 g/dL Hematocrit 35.2 42-52 % Mean Corpuscular Volume 87.6 80-100 fL Mean Corpuscular Hemoglobin 27.9 25-34 pg Mean Corpuscular Hemoglobin Concent 31.8 32-36 g/dl Platelet Count 341 130-400 K/uL Mean Platelet Volume 8.9 7.4-10.4 fL Neutrophils (%) (Auto) 74.8 % Lymphocytes (%) (Auto) 16.2 % Monocytes (%) (Auto) 8.4 % Eosinophils (%) (Auto) 0.3 % Basophils (%) (Auto) 0.0 % Neutrophils # (Auto) 6.83 1.4-6.5 K/uL Lymphocytes # (Auto) 1.48 1.2-3.4 K/uL Monocytes # (Auto) 0.77 0.11-0.59 K/uL Eosinophils # (Auto) 0.03 0-0.5 K/uL Basophils # (Auto) 0.00 0-0.2 K/uL RDW Standard Deviation 43.8 36.4-46.3 fL RDW Coefficient of Variation 13.6 11.5-14.5 % Immature Granulocyte % (Auto) 0.3 % Immature Granulocyte # (Auto) 0.03 0.00-0.02 K/uL Creatinine 0.98 0.60-1.40 mg/dl Est Creatinine Clear Calc Drug Dose 56.4 ml/min Estimated GFR () 91.4 Estimated GFR (Non- 78.9
[2016-12-21 10:45] VITALS: BP 125/75; PULSE 75; TEMP 36.7; O2SAT 95
[2016-12-21] MEDS ORDERED: PRD20 PO (11:38)
--- NOTE | 2016-12-22 08:06 | Discharge Summary ---
Discharge Summary Date of Service December 22, 2016. Discharge Summary Admission Date: December 17, 2016 at 23:33 Discharge Date: December 21, 2016 Discharge Disposition: Home Principal Diagnosis: Acute on chronic respiratory failure,COPD exacerbation secondary pneumonia- Possible Aspiration. Secondary Diagnoses/Problems: Please see H&P and Hospital progress note Consultations: Pain management and Pulmonary Medication Reconciliation New Medications: Amoxicillin & Pot Clavulanate (Augmentin 875-125 mg) 1 Tab Tab 875 MG PO BID for 4 Days, #8 TAB Ipratropium Polson (Ipratropium Polson) 0.5 Mg/2.5 Ml Nebu 0.5 MG INH Q6R PRN for SOB/Wheezing for 30 Days Levalbuterol (Levalbuterol) 1.25 Mg/0.5 Ml Nebu 1.25 MG INH Q6R PRN for SOB/Wheezing for 30 Days Levothyroxine Sodium (Synthroid) 125 Mcg Tab 125 MCG PO DAILYBB for 30 Days, TAB Prednisone (Prednisone) 20 Mg Tab 20 MG PO UD for 11 Days, #15 TAB 2 po daily for 2 days,1 and a 1/2 po daily for 3 days,1 po daily for 3 datys and then 1/2 po daily for 3 days Continued Medications: Albuterol Sulf (Albuterol Sulfate) 2.5 Mg/3 Ml Nebu 3 ML NEB QID PRN for SOB/Wheezing Ascorbic Acid (Ascorbic Acid) 1,000 Mg Tab 1000 MG PO DAILY Cholecalciferol (Vitamin D 1000 Unit) 1,000 Unit Cap 1000 INTER.UNIT PO DAILY, CAP Difluprednate (Durezol) 0.05 % Emu 1 DROP OPL BID INSTILL EVERY MORNING AND IN THE LATE AFTERNOON Esomeprazole Magnesium (Nexium) 40 Mg Capcr 40 MG PO BID, CAP Ezetimibe/Simvastatin (Vytorin 10-40 mg) 1 Tab Tab 1 TAB PO HS Fexofenadine Hcl (Shanique Allergy) 180 Mg Tab 180 MG PO DAILY PRN for Allergy Symptoms, TAB Fish Oil (Panola-3) 1 Ea Cap 1 CAP PO DAILY, CAP Fluticasone Prop/Salmeterol (Advair Diskus 500-50 Mcg/Dose) 14 Puff/1 Inhaler Aerp 2 PUFFS INH BID Hydroxyzine Pamoate (Vistaril) 25 Mg Cap 25 MG PO BID PRN for Itching, CAP Oxygen (Oxygen) Gas 2 LITERS NA CONTINOUS For 24 hours daily and 7 days a week Paroxetine (Paxil) 40 Mg Tab 40 MG PO DAILY, TAB Promethazine Hcl (Phenergan) 25 Mg Tab 25 MG PO Q6H PRN for Nausea, TAB Sennosides-Docusate Sodium (Stool Softener) 1 Tab Tab 50 MG PO BID Tadalafil (Cialis) 2.5 Mg Tab 2.5 MG PO UD, TAB Testosterone (Axiron) 30 Mg/Act Lindsay 1 APPLN TOP HS APPLY MD DIRECTS Tiotropium Polson (Spiriva Handihaler) 30 Puff/540 Mcg Aerp 1 CAP INH QAM, INHALER Tramadol (Ultram) 50 Mg Tab 50 MG PO Q6H PRN for Pain, TAB Discontinued Medications: Levothyroxine Sodium (Levothyroxine Sodium) 150 Mcg Tab 150 MCG PO DAILY, TAB Admission Information HPI (per Admitting provider): PRIMARY CARE DOCTOR: Dr. Ríos CHIEF COMPLAINT: Chest pain and shortness of breath. HISTORY OF PRESENT ILLNESS: Hx obtained from px and records. Medical history is significant for chronic respiratory failure secondary to COPD on home O2, past tobacco abuse, chronic back pain sp surgery sp intrathecal pump, chronic anemia (baseline hemoglobin of 12), mood disorder, Barretts esophagus/ GERD sp surgery, colonic polyps. About two weeks ago, the patient noted cough symptoms productive of yellow sputum. Denies junacarlos aspiration although he feels would get food stuck in his throat from time to time. Outpatient EGD scheduled for next month. He was seen at PCP's office. Prescribed Levaquin and prednisone for COPD exacerbation. Initial improvement of symptoms. About three days ago, the patient had pleuritic chest pain, sob sx and recurrent cough symptoms productive of green sputum. He was seen at [facility] in [place], [place]. As per patient, CT of the chest showed pneumonia, no pulmonary embolism. Patient was given IV antibiotics and sent home. Worsening symptoms at home. Stools are a little loose. At the Emergency Room the patient received Solu-Medrol, breathing treatments and Zosyn for COPD exacerbation/pneumonia. MEDICAL HISTORY: As above. Patient's crm solution architect is Dr. Willis from [facility]. Patient goes to [facility] Pain Management. Addition of clonidine to intrathecal Dilaudid pump during last visit this month. SURGERIES: He has had back surgery, pain pump placement, Edwin fundoplication, cataract surgery. 2D echo from July 2015 showed EF of 72%, mildly abnormal LV diastolic dysfunction. HOME MEDICATIONS: Include; Proventil, vitamin B, DuoNeb, Nexium, Shanique, Panola-3, Advair Diskus, Megace, oxygen, Paxil, testosterone, Cialis, Spiriva, Ultram, dilaudid/clonidine in pain pump ALLERGIES: TO CARBAMAZEPINE, IBUPROFEN AND GABAPENTIN. FAMILY HISTORY: Hypertension. PERSONAL AND SOCIAL HISTORY: Past tobacco. No chronic intake of alcoholic beverages. Retired from the . REVIEW OF SYSTEMS: As per HPI. All other ROS negative. PHYSICAL EXAMINATION: VITAL SIGNS: Blood pressure was noted to be 86/60, pulse rate 105 later 90, RR 22, T 37 O2 sats 92 on two liters. GENERAL: Noted to be chronically ill, hyposthenic, minimal respiratory distress. SKIN: Pallor. HEENT: Pale palpebral conjunctivae. Dry mucosa. NECK: No JVD. Supple. CHEST: Expiratory wheezes. HEART: Regular rate and rhythm. ABDOMEN: No distention, nontender. EXTREMITIES: No edema. no tenderness NEUROLOGIC: No gross focality. LABORATORIES: Hemoglobin was noted to be 12.8, white cell count 8.3 and platelets 268. Sodium was noted to be 138, potassium 3.8 chloride 100, CO2 30, BUN 20, creatinine 0.9 and glucose 123. TSH was 0.07, FT4 3.12 BNP was normal. ABG pH 7.48, pCO2 37, pO2 81, 95% on two liters. Chest x-ray showed emphysema, infiltrate on the right upper lobe. EKG as per my interpretation; rate 80, NSR, left axis deviation, LAFB, negative ischemia. ASSESSMENT: 1. Acute on chronic respiratory failure secondary to chronic obstructive pulmonary disease exacerbation secondary to pneumonia, possible aspiration recent emesis episode possible esophageal dysfunction. Recent bronchitis status post Levaquin/prednisone course Patient is not septic. past tobacco abuse. 2. pleuritic cp from pneumonia no PE from recent ER visit ([facility]) chronic pain on intrathecal pain pump. 3. hypotension, possibly from intrathecal clonidine 4. Hypothyroidism, abnormal thyroid function tests. 5. Chronic anemia, hemoglobin at baseline. 6. GERD sp Edwin fundoplication. 7. Malnutrition (low BMI) 8. loose stools ro cdif PLAN: PCU supplemental O2 Zosyn, nebs RTC, prn; prednisone Pulmonary consult. COPD exacerbation (Patient known to Dr. Willis.) Swallow evaluation. Aspiration precautions for now. TTE RE cp Retrieve CT chest results from [facility], [place] [facility] Pain management consult. RE Follow up evaluation of intrathecal pain pump ( ?intrathecal clonidine causing hypotension) adjust home levothyroxine dose, recheck TSH outpx next month stool cdif Nutrition consult. RE low BMI DVT prophylaxis, Lovenox subQ. Full code. Hospital Course Acute on chronic respiratory failure Due COPD exacerbation secondary to pneumonia,possible aspiration Emphysematous change with developing components of congestive failure versus right apical infiltrative change. Was on IV Zosyn, changed to PO Augmentin Continue DuoNeb treatment Continue prednisone 40mg daily with taper on discharge Pulmonary consulted: Recommended possible a 5 days course of Z-pac on the 1st week of every month as a prophylaxis to avoid exacerbation Also a low dose daily steroid (5 - 10mg) Follow up with pulmonary in 2- 3 weeks when discharge Clinically improved significantly Ok to discharge from pulmonary standpoint. Clinically better to be discharged Chest Pain Atypical, mostly due to pleuritic chest pain and Costochondritis from coughing No ACS EKG did not showed any ST changes Echo * The left ventricle is normal in size. * There is normal left ventricular wall thickness. * Ejection Fraction = >70 %. * The left ventricle is hyperdynamic. * No segmental left ventricular wall motion abnormalities are noted. * The left ventricular wall motion is normal. Constipation had diarrhea on admission, now constipates continue Senokot prn Hypotension possibly from intrathecal clonidine Case discussed with Dr. Bell, clonidine will remove from the pump BP stable Intractable back pain his pump was filled with hydromorphone without the clonidine Continue pain pump as per pain management Pain Pump was changed on 12/20/16-will have OP follow up with pain therapist Hypothyroidism. TSH is low decreased levothyroxine to 125 mcg Repeat TSH in 6 week Chronic anemia Stable GERD sp Edwin fundoplication. DVT px On Lovenox CODE STATUS FULL CODE Consultants: Pain management Pulmonary DISPOSITION Discharge today Total time spent on discharge = 40 minutes This includes examination of the patient, discharge planning, medication reconciliation, and communication with other providers. Discharge Instructions Date of Service December 20, 2016. Admission Reason for Admission: Respiratory Failure, Acute On Chronic Discharge Discharge Diagnosis / Problem: Acute on chronic respiratory failure,COPD exacerbation secondary pneumonia Discharge Goals Goal(s): Decrease discomfort, Improve function, Improve disease control Activity Recommendations Activity Limitations: resume your previous activity (as tolerated) . Instructions / Follow-Up Instructions / Follow-Up Please call your primary care provider to schedule follow up appointment with your PCP within 1 week Follow up appointment with pulmonary Dr. Willis between 2 to 3 weeks Follow up with Pain management Complete the course of antibiotic complete steroid tape dose Levothyroxine was decreased to 125mcg daily check your TSH (thyroid marker) in 6- 8 weeks (your PCP will order it for you) Current Hospital Diet Patient's current hospital diet: Low Lactose Diet Discharge Diet Recommended Diet: Low Lactose Diet Pending Studies Studies pending at discharge: no Medical Emergencies . Who to Call and When: Medical Emergencies: If at any time you feel your situation is an emergency, please call 911 immediately. . Non-Emergent Contact Non-Emergency issues call your: Primary Care Provider, Specialist (Pain management ) Call Non-Emergent contact if: you have a fever, your pain is not controlled, your pain is worsening, you have any medication questions . . "Provider Documentation" section prepared by Chanell Breaux. . VTE Core Measure Inpt VTE Proph given/why not?: Enoxaparin (Lovenox)SQ Additional Copies To Darryl Ríos M.D.
--- NOTE | 2016-12-27 10:56 | EDITING REQUIRED CODING QUERY ---
CODING QUERY Dear Dr. Lewis To promote full compliance with coding requirements relating to patient care, provider participation is requested in all cases of top cutter uncertainty. Please assist us with the question(s) below: Coding Question(s): Possible Aspiration Pneumonia Please clarify below: ( + ) Possible Aspiration Pneumonia ( ) Aspiration Pneumonia Ruled Out ( ) Other: Please explain ( ) Unable to determine Medical documentation: 1. Acute on chronic respiratory failure secondary to chronic obstructive pulmonary disease exacerbation secondary to pneumonia, possible aspiration recent emesis episode possible esophageal dysfunction. Recent bronchitis status post Levaquin/prednisone course Patient is not septic. past tobacco abuse. Physician's Response(s): Thank you for your time. Ava Carrera [facility] Principal Diagnosis: "_that condition established after study, to be chiefly responsible for occasioning the admission of the patient to the hospital for care." Co-Existing Principal Diagnosis: "_when two or more diagnoses equally meet the criteria for principal diagnosis as determined by the circumstances of admission, diagnostic work up, and/or therapy provided, and the Alphabetic Index, Tabular List, or another coding guideline does not provide sequencing direction, any one of the diagnoses may be sequenced first." "When the physician has documented what appears to be a current diagnosis in the body of the record, but has not included the diagnosis in the final diagnostic statement, the physician should be asked whether the diagnosis should be added." (Source Coding Clinic 2 QTR90. p3-4)
== END 2016-12-21 13:17 | disposition home or self-care (01) | DRG 177 ==
LOC: ENRESERVDT → ENRESERVTM → C.EDB 20:33 → C.MED 23:33
PROVIDERS: ADMIT Internal Medicine; ATTEND Internal Medicine
DX: J69.0 Pneumonitis due to inhalation of food and vomit (principal); J96.20 Acute and chronic respiratory failure, unspecified whether with hypoxia or hypercapnia; J44.1 Chronic obstructive pulmonary disease with (acute) exacerbation; J44.0 Chronic obstructive pulmonary disease with (acute) lower respiratory infection; E46 Unspecified protein-calorie malnutrition; Z68.1 Body mass index [BMI] 19.9 or less, adult; T46.5X5A Adverse effect of other antihypertensive drugs, initial encounter; I95.9 Hypotension, unspecified; E03.9 Hypothyroidism, unspecified; K21.9 Gastro-esophageal reflux disease without esophagitis; G89.29 Other chronic pain; M54.9 Dorsalgia, unspecified; K22.70 Barrett's esophagus without dysplasia; D64.9 Anemia, unspecified; F39 Unspecified mood [affective] disorder; R07.81 Pleurodynia; M94.0 Chondrocostal junction syndrome [Tietze]; R19.7 Diarrhea, unspecified; K59.00 Constipation, unspecified; Z79.891 Long term (current) use of opiate analgesic; Z97.8 Presence of other specified devices; Z99.81 Dependence on supplemental oxygen; Z87.891 Personal history of nicotine dependence; Z79.51 Long term (current) use of inhaled steroids

== ENCOUNTER → 2017-05-01 | Outpatient (CLI) | payer OTHER ==
[~2017-05-01] MED LIST changes: +ALBINS NEB; -ALBUAER9 INH; +ASCO100061 PO; -ASCOCRY2 PO; -CHOL100010 PO; +CHOL100027 PO; +DIFL0.0519 OPL; -DUONEB INH; +HYDR1CAP85 PO; -LEVO150T9 PO; -MEGE40TA13 PO; +PRD20 PO; +PROM25TA9 PO; +SENNTAB23 PO; +SPRIN/30 INH; +SYN125 PO; -TADA10TA PO; +TADA2.5T PO; -TIOTCAP INH; +XPNINS1255 INH; -[UNRECOGNIZED DRUG - REMARK]
[2017-05-01 12:54] LABS: HEMATOCRIT 41.9 % (42-52); MEAN CELL VOLUME 84.3 fL (80-100); MEAN CORPUSCULAR HEMOGLOBIN 27.8 pg (25-34); MEAN CORPUSCULAR HGB CONC 32.9 g/dl (32-36); PLATELET COUNT 234 K/uL (130-400); RED BLOOD COUNT 4.97 M/uL (4.7-6.1); WHITE BLOOD COUNT 8.63 K/uL (4.8-10.8)
[2017-05-01 13:52] LABS: THYROID STIMULATING HORMONE 0.209 uIu/ml (0.300-4.500)
[2017-05-05 15:20] LABS: ILGF1 Z SCORE MALE -0.2 SD (-2.0 - +2.0)
== END | disposition home or self-care (01) ==
LOC: C.LAB1850 09:53
PROVIDERS: ATTEND Internal Medicine Endocrinology, Diabetes & Metabolism
DX: E03.9 Hypothyroidism, unspecified (principal); E23.0 Hypopituitarism; E06.3 Autoimmune thyroiditis